=== PATIENT | female | born 1935 | race Caucasian/White ===

== ENCOUNTER 2021-03-06 21:47 | Observation (INO) | payer MEDICARE, OTHER, SELFPAY ==
--- NOTE | 2021-03-06 21:58 | DI.RAD.S_ITS ---
PROCEDURE: XR HIP W PEL IF DONE LT 2V INDICATIONS: fall with pain to left hip TECHNIQUE: AP pelvis with lateral view(s) of the left hip(s). COMPARISON: None. FINDINGS: Bones: No fractures or dislocations. Pelvic ring appears intact. No suspicious bony lesions. Mild bilateral hip osteoarthritis. Soft tissues: The visualized bowel gas pattern is normal. No suspicious soft tissue calcifications. IMPRESSION: No fracture. No osseous lesion. If symptoms and/or clinical suspicion for pathology persists, further assessment with repeat radiographs (7-10 days) or advanced imaging (e.g. CT, MRI or bone scan) should be considered. Dictated by: Tianna Wilson MD, PhD on 03/07/2021 at 8:27 Approved by: Tianna Wilson MD, PhD on 03/07/2021 at 8:28
[2021-03-06 22:03] VITALS: BP 174/79; PULSE 79; RESP 17; TEMP 36.6; O2SAT 99; BMI 25.7
[2021-03-06 22:33] VITALS: PULSE 79; O2SAT 97
--- NOTE | 2021-03-06 22:35 | DI.CT.S_ITS ---
PROCEDURE: CT LE LT W CON INDICATIONS: Left knee pain/injury TECHNIQUE: Noncontrast 1-1.5 mm axial sections acquired from the mid-patella to the proximal tibia, with coronal and sagittal reformats. COMPARISON: [facility] [place], CR, XR KNEE ARTHRITIC SERIES BI, 05/03/2018, 11:16. FINDINGS: Image quality: Excellent. Bones: No acute osseous fracture is seen. However, CT is relatively insensitive for trabecular bone injury or contusion. There is moderate to severe narrowing of the medial and lateral femorotibial compartment with marginal osteophyte formation and chronic remodeling of the lateral tibial plateau. Moderate narrowing of the anterior compartment joint space is seen. A congenitally shallow trochlear groove is seen with lateral patellar tilting and mild lateral patellar subluxation. Enthesophytes are seen at the distal quadriceps tendon insertion. Soft tissues: There is a small joint effusion. A small medial popliteal cyst is present. The articular cartilages, menisci, ligaments, and tendons are not well evaluated with CT. There is mild generalized fatty infiltration of the musculature surrounding the knee. Arterial vascular calcifications are present. IMPRESSION: 1. No acute osseous fracture. If symptoms persist or if there is concern for acute trabecular bone injury or soft tissue injury that would change the clinical management, an MRI may be obtained for further evaluation. 2. 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 3. Small joint effusion. Small medial popliteal cyst. There is no significant discrepancy when compared to the overnight Teleradiology report. Dictated by: Abdulkadir Sweet M.D. on 03/07/2021 at 8:26 Approved by: Abdulkadir Sweet M.D. on 03/07/2021 at 8:31
--- NOTE | 2021-03-06 22:35 | DI.CT.S_ITS ---
PROCEDURE: CT PEL WO CON INDICATIONS: pain/injury TECHNIQUE: Noncontrast 3 mm axial sections acquired through the bony pelvis, with coronal and sagittal reformatting. COMPARISON: [facility], CR, XR HIP W PEL IF DONE LT 2V, 03/06/2021, 22:07. FINDINGS: Image quality: Excellent. Bones: There is a nondisplaced fracture the anterior wall of the acetabulum extending to the iliopectineal line medially. Additional nondisplaced fracture is seen in the medial parasymphyseal portion of the left pubic bone. Focal cortical irregularity is seen at the midshaft of the left inferior pubic ramus, consistent with a nondisplaced fracture. A nondisplaced fracture is seen at the left ischial spine (image 63 of series 2). Additionally, there is a nondisplaced fracture of the superior portion of the left susan sacrum (image 24 series 2). There is a nondisplaced fracture of the left transverse process of the L5 vertebra. Mild to moderate degenerative changes are seen in the hips bilaterally. Degenerative changes also noted in the included lumbar spine. Soft tissues: Soft tissue edema is seen in the subcutaneous tissues lateral to the left greater trochanter. The articular cartilages, ligaments, and tendons are not well evaluated with CT. Atherosclerotic calcifications are seen in the aorta. Multiple diverticula are seen in the colon without signs of acute diverticulitis. IMPRESSION: 1. Nondisplaced anterior wall fracture of the left acetabulum. 2. Nondisplaced left parasymphyseal pubic bone fracture and nondisplaced fracture of the inferior left pubic ramus. 3. Nondisplaced fractures of the superior left hemisacrum and the adjacent left transverse process of the L5 vertebra. 4. Nondisplaced fracture of the left ischial spine. Dictated by: Abdulkadir Sweet M.D. on 03/07/2021 at 8:03 Approved by: Abdulkadir Sweet M.D. on 03/07/2021 at 8:25
--- NOTE | 2021-03-06 22:40 | ED_ITS ---
HPI - Fall General Chief Complaint: Fall Stated Complaint: Possible Left Hip Fracture Time Seen by Provider: 03/06/21 22:29 Source: patient Mode of arrival: Ambulatory History of Present Illness HPI Narrative: [place] Patient [place] the garden and lost her footing and fell down her left hip pelvis area as well as left knee. No previous hip or knee or pelvis injury or surgery or fractures. Pain with attempts to bear weight. Leg is not shortened or rotated. Patient states up-to-date with tetanus shot. Has abrasions to the left elbow. Denies any other injuries. No head or neck or back injury. Or pain. Related Data Home Medications Medication Instructions Recorded Confirmed CHOLECALCIFEROL (VITAMIN D3) 800 unit PO QDAY #0 12/25/10 (Vitamin D3) Fish Oil 1,000 mg PO BID #0 12/25/10 [PROBIOTIC] 2 tab PO HS #0 12/25/10 Lutein (#LUTEIN) 20 mg PO QDAY #0 03/31/12 [LICOPENE] Q DAY #0 04/09/16 [tumeric] #0 09/15/16 aspirin 81 mg chewable tablet 81 mg PO QDAY #0 09/15/16 cyanocobalamin (vitamin B-12) 1,000 mcg PO #0 09/15/16 1,000 mcg tablet,extended release carter (Zingiber officinalis) 550 550 mg PO #0 09/15/16 mg capsule Previous Rx's Medication Instructions Recorded [coenzyme Q10] 200 mg OR QDAY #30 cap 09/15/16 doxycycline hyclate 100 mg capsule 100 mg PO SEE INSTRUCTIONS #42 cap 09/15/16 metronidazole 0.75 % topical cream 1 jonel TOPICAL SEE INSTRUCTIONS #45 09/15/16 (MetroCream) gm levothyroxine 100 mcg tablet 0.1 mg PO Q DAY #90 tab 09/22/16 lisinopril 10 mg tablet 10 mg PO QDAY #90 tab 12/11/16 atorvastatin 40 mg tablet (Lipitor) 40 mg PO HS #90 tab 01/09/17 Allergies Allergy/AdvReac Type Severity Reaction Status Date / Time tetracycline AdvReac Mild NAUSEA Unverified 10/07/17 13:01 Review of Systems Review of Systems Narrative: GENERAL: Denies chills, fatigue, malaise, fever, sweats. HEENT: Denies sinus pain, ear pain, sore throat RESPIRATORY: Denies dyspnea, cough CARDIOVASCULAR: Denies chest pain, palpitations GASTROINTESTINAL: Denies nausea, vomiting, abdominal pain : Denies dysuria, frequency, hematuria MUSCULOSKELETAL: Complainsmuscle or bony pain SKIN: Denies rash, skin lesions NEUROLOGIC: Denies weakness, numbness ROS Unobtainable: All systems reviewed & are unremarkable except as noted in HPI and below Patient History Social History Smoking Status: Never smoker Smoking Status: Never smoker alcohol intake frequency: 0-2 drinks per day Alcohol type: wine Substance Use Type: does not use Exam Narrative Exam Narrative: GENERAL: in no distress, not toxic not dyspneic HEAD: Normocephalic. Nontender scalp and face. EYES: Pupils equal round No scleral icterus. No injection no discharge ENT: Mucous membranes moist. NECK: Trachea midline. No midline tenderness or step-off. CARDIOVASCULAR: Regular rate and rhythm without murmurs RESPIRATORY: Clear to auscultation. Breath sounds equal bilaterally. No wheezes, rales, or rhonchi. GASTROINTESTINAL: Abdomen soft, non-tender EXTREMITIES: No gross deformities. There is tenderness to left hip but no deformity. Left leg is not shortened or rotated. There is abrasions and bruising to the left knee. Limited flexion extension at the hip and knee on the left side due to pain. Strong pedal pulse. Foot is warm soft and pink. Light touch intact to foot and toes. Small abrasion to left elbow but nontender elbow otherwise. BACK: No flank tenderness. NEURO: AOx4. SKIN: Warm and dry PSYCH: Not anxious, is cooperative Initial Vital Signs Initial Vital Signs: Vital Signs Temperature 97.8 F 03/06/21 22:03 Pulse Rate 79 03/06/21 22:03 Respiratory Rate 17 03/06/21 22:03 Blood Pressure 174/79 H 03/06/21 22:03 Pulse Oximetry 99 03/06/21 22:03 Course Course Course Narrative: No new issues during course of stay Decision to Admit Date: 03/07/21 Decision to Admit time: 00:19 Orders Ordered: ED Orders 03/06/21 21:58 XR hip w pel if done LT 2V Stat 03/06/21 22:35 CT LE LT wo con Stat CT pelvis wo con Stat 03/07/21 00:20 COVID19 - ADMIT ([employer] swab/PCR) Stat 03/07/21 02:05 Education, smoking cessation ONGOING 03/07/21 02:12 Consult to Physician Routine 03/07/21 05:00 Basic Metabolic Panel Routine Complete Blood Count AUTO DIFF Routine Magnesium Routine Acetaminophen (Acetaminophen 325 Mg Tablet) 650 mg PO Q6HR PRN PRN Reason: Fever/Mild Pain (1-3) Al Hydrox/Mg Hydrox/Simethicone (Mag Hydrox/Alum/Simeth 30 Ml Udc) 30 ml PO Q6HR PRN PRN Reason: Dyspepsia Heparin Sodium (Porcine) (Heparin 5,000 Unit/Ml Vial) 5,000 unit SUBCUT BID ZANE Lactated Ringer's (Lactated Ringers) 1,000 mls @ 60 mls/hr IV CONT ZANE Magnesium Hydroxide (Magnesium Hydroxide 30 Ml Udc) 30 ml PO DAILY PRN PRN Reason: Constipation Morphine Sulfate (Morphine 2 Mg/Ml Inj) 2 mg IV Q4HR PRN PRN Reason: Pain, Moderate (4-6) Last Admin: 03/07/21 03:22 Dose: 2 mg Documented by: DELONTE Naloxone HCl (Naloxone 0.4 Mg/Ml Vial) 0.2 mg IV Q2MIN PRN PRN Reason: Opiate Reversal Ondansetron HCl (Ondansetron 4 Mg/2 Ml Inj) 4 mg IV Q8HR PRN PRN Reason: Nausea And Vomiting Oxycodone HCl (Oxycodone Ir 5 Mg Tablet) 5 mg PO Q6HR PRN PRN Reason: Pain, Moderate (4-6) Sennosides (Sennosides 8.6 Mg Tablet) 17.2 mg PO BEDTIME [facility] Discontinued Medications Morphine Sulfate (Morphine 4 Mg/Ml Inj) 4 mg IV NOW ONE Stop: 03/06/21 22:36 Last Admin: 03/06/21 22:42 Dose: 4 mg Documented by: XU Ondansetron HCl (Ondansetron 4 Mg/2 Ml Inj) 4 mg IV NOW ONE Stop: 03/06/21 22:36 Last Admin: 03/06/21 22:42 Dose: 4 mg Documented by: XU Reevaluation(s) Reevaluation #1: Reviewed results with patient. Understands and agrees for admit for orthopedic consult as well as physical therapy Time: 00:19 Consultations Consultation #1: Spoke with Orthopedics, Dr. Johnson, reports on CT revealed likely nonsurgical. However available for consult in review CT tomorrow and patient Time: 00:21 Consultation #2: Spoke with Nel, hospitalist, will admit Time: 01:27 Vital Signs Vital signs: Vital Signs - 8 hr 03/06/21 22:03 03/06/21 22:33 03/06/21 23:00 Temperature 97.8 F Pulse Rate 79 79 74 Respiratory Rate 17 Blood Pressure 174/79 H 140/66 Pulse Oximetry 99 97 100 03/06/21 23:01 03/06/21 23:30 03/06/21 23:31 Temperature Pulse Rate 74 73 71 Respiratory Rate Blood Pressure 134/62 141/65 H Pulse Oximetry 100 99 98 03/07/21 00:00 03/07/21 00:30 Temperature Pulse Rate 77 Respiratory Rate Blood Pressure 154/68 H 171/79 H Pulse Oximetry 98 MDM - Fall Differential Diagnosis Differential diagnosis: Likely other (Hip fracture/pelvic fracture) Lab Data Labs: Lab Results 03/07/21 Range/Units 00:20 SARS-CoV-2 (PCR) Negative (Negative) Imaging Data Extremity x-ray #1: Radiologist's Impression: Read by overnight radiologist's x-ray left hip with pelvis no acute fracture or dislocation. Extremity x-ray #2: Radiologist's Impression: CT pelvis without contrast read by overnight radiologist impression small nondisplaced fractures of left superior and inferior pubic rami and in the left anterior acetabulum. No acute hip fracture or dislocation. Extremity x-ray #3: Radiologist's Impression: CT scan left knee without contrast read by overnight radiologist impression small joint effusion with no acute fracture or dislocation. Moderate degenerative changes. MDM Narrative Medical decision making narrative: Appropriate for admission for pain control as well as physical therapy for mobility. Discharge Plan Departure Patient Disposition: Admitted as Observation Clinical Impression: Closed fracture of hip Qualifiers: Encounter type: initial encounter Laterality: unspecified laterality Qualified Code(s): S72.009A - Fracture of unspecified part of neck of unspecified femur, initial encounter for closed fracture Admit Date/Time: 03/07/21 02:10 Admit Provider: Nel Sal
[2021-03-06] MEDS: ONDANSETRON 4 MG/2 ML INJ IV (22:42)
[2021-03-06] MEDS: MORPHINE 4 MG/ML INJ IV (22:42)
[2021-03-06 23:00] VITALS: BP 140/66; PULSE 74; O2SAT 100
[2021-03-06 23:01] VITALS: BP 134/62; PULSE 74; O2SAT 100
[2021-03-06 23:30] VITALS: PULSE 73; O2SAT 99
[2021-03-06 23:31] VITALS: BP 141/65; PULSE 71; O2SAT 98
[2021-03-07] VITALS (13 sets, daily range): BP systolic 129–171; BP diastolic 61–79; PULSE 77–86; RESP 16–18; TEMP 36.3–37.3; O2SAT 91–98; BMI 27.6
[2021-03-07 01:24] LABS: COVID19 - ADMIT (NP swab/PCR) Negative (Negative)
[2021-03-07] MEDS: MORPHINE 2 MG/ML INJ IV ×2 (03:22→08:54)
[2021-03-07] MEDS: LACTATED RINGERS 1,000 ML 60 ML IV (03:33)
--- NOTE | 2021-03-07 04:52 | PC.ADMIT ---
Can'T Receive Mail At [facility] [address] Admission Note: Patient arrived to the unit via stretcher from ED at 0315, patient is A/O and rating pain 10/10 with anticipation of moving to unit bed. Patient was given morphine 2mg IV. Patient was on 3L O2 NC at arrival but was weaned off and is now on RA with O2 Saturation at 98-100%. A mckeon was placed at admission and patient tolerated it well. Home medications were reviewed with the patient with some vitamins not verified d/t patient not being able to recall doses. Patient was oriented to room, fall precautions, and call light. Call light was left within reach and no other requests at this time. The patient,Jia Chakraborty,85 y/o, was given written information regarding hospital policies, unit procedures and contact persons. Patient's smoking status: Never smoker. Vital Signs - 8 hr 03/06/21 22:03 03/06/21 22:33 03/06/21 23:00 Temperature 97.8 F Pulse Rate 79 79 74 Respiratory Rate 17 Blood Pressure 174/79 H 140/66 Pulse Oximetry 99 97 100 03/06/21 23:01 03/06/21 23:30 03/06/21 23:31 Temperature Pulse Rate 74 73 71 Respiratory Rate Blood Pressure 134/62 141/65 H Pulse Oximetry 100 99 98 03/07/21 00:00 03/07/21 00:30 03/07/21 03:15 Temperature 99.2 F Pulse Rate 77 81 Respiratory Rate 18 Blood Pressure 154/68 H 171/79 H 132/61 Pulse Oximetry 98 97 03/07/21 04:18 Temperature Pulse Rate Respiratory Rate Blood Pressure Pulse Oximetry 95
[2021-03-07 05:56] LABS: Add Manual Diff / Slide Review NO; Basophils Absolute Auto 100 /uL (0-100); Basophils Percent Auto 0.6 % (0-2); Eosinophils Absolute Auto 200 /uL (0-450); Eosinophils Percent Auto 1.3 % (2-4); Hematocrit 44.3 % (36-46); Hemoglobin 14.4 g/dL (12.0-16.0); Lymphocytes Absolute Auto 1300 /uL (1100-4500); Mean Corpuscular HGB Conc 32.5 % (30-36); Mean Corpuscular Hemoglobin 32.2 PG (26-34); Monocytes Absolute Auto 1000 /uL (0-900); Monocytes Percent Auto 7.9 % (3-14); Neutrophils Absolute Auto 9500 /uL (1500-7000); Neutrophils Percent Auto 79.2 % (50-75); Platelet Count 226 X10^3/uL (150-400); Red Blood Cell Count 4.47 X10^6/uL (4.0-5.2); Red Cell Distribution Width 13.5 % (11.6-14.8); White Blood Cell Count 12.1 X10^3/uL (4.5-11.0)
[2021-03-07 06:08] LABS: BUN Creatinine Ratio 25.6 (6-22); Blood Urea Nitrogen 21 mg/dL (7-17); Carbon Dioxide 28 mmol/L (22-32); Chloride 107 mmol/L (98-107); Estimated Glomerular Filt Rate > 60.0 mL/min (>60); Glucose 110 mg/dL (80-110); HEMOLYSIS < 15 (0-50); Magnesium 2.2 mg/dL (1.6-2.3); Potassium 3.8 mmol/L (3.4-5.1); Sodium 138 mmol/L (137-145)
--- NOTE | 2021-03-07 06:41 | P.HP_ITS ---
History of Present Illness History of Present Illness Date Patient Seen: 03/07/21 Time Patient Seen: 02:14 Chief complaint: Possible Left Hip Fracture Narrative: Patient is an 85-year-old female Jia Chakraborty with a history hypertension, polymyalgia rheumatica-chronic prednisone , and hypothyroidism [place] Patient [place] the garden and lost her footing and fell down her left hip pelvis area as well as left knee.? No previous hip or knee or pelvis injury or surgery or fractures.? Pain with attempts to bear weight, or movement.? Leg is not shortened or rotated.? Patient states up-to-date with tetanus shot.? Has abrasions to the left elbow.? Denies any other injuries.? No head or neck or back injury. Keith aleman denies chest pain, shortness of breath, headache, changes in vision, abdominal pain, nausea, vomiting, neck pain, numbness, tingling, weakness, other than pain with pelvic movement. Patient is resting comfortably in bed and states that she is in no pain if she lays perfectly still in the bed. Patient is unable to get up and ambulate or move at all. Patient's vitals in the ED demonstrated some mild hypertension with a BP 171/79, HR 77, R 17, O2 saturation 98% on room air. No labs were drawn in the ED. patient's lower extremity CT demonstrated left knee small joint effusion without fracture or dislocation, pelvis CT demonstrated small displaced fractures of the left superior and inferior pubic ramus and in left anterior acetabulum. All orthopedic Dr. Johnson reviewed imaging and will consult tomorrow but believes it will be managed with conservative therapy and will not require surgical intervention. Patient admitted for pelvic fractures secondary to mechanical ground level fall. Patient History Medical History (Updated 03/07/21 @ 06:50 by KING Larry) Acquired hypothyroidism Essential hypertension Surgical History (Updated 03/07/21 @ 06:50 by KING Larry) History of tonsillectomy Family & Social History Family History Father Emphysema lung Sister No problems noted. Social History: household members none Prior Living Arrangements House Safety & Behavioral: Feels Safe in Current Yes Environment Been Physically Hurt or No Threatened By a Person Suicidal Ideation Description None Suicide Plan Description No Plan Tobacco & Substance use: Smoking Status Never smoker alcohol intake frequency 0-2 drinks per day Substance Use Type does not use Meds Home Medications and Allergies Home Medications Medication Instructions Recorded Confirmed Type CHOLECALCIFEROL (VITAMIN D3) 800 unit PO QDAY #0 12/25/10 03/07/21 History (Vitamin D3) Fish Oil 1,000 mg PO BID #0 12/25/10 History Lutein (#LUTEIN) 20 mg PO QDAY #0 03/31/12 History [coenzyme Q10] 200 mg OR QDAY #30 cap 09/15/16 03/07/21 Rx aspirin 81 mg chewable tablet 81 mg PO QDAY #0 09/15/16 03/07/21 History cyanocobalamin (vitamin B-12) 1,000 mcg PO #0 09/15/16 History 1,000 mcg tablet,extended release doxycycline hyclate 100 mg capsule 100 mg PO SEE INSTRUCTIONS #42 cap 09/15/16 Rx carter (Zingiber officinalis) 550 550 mg PO #0 09/15/16 History mg capsule metronidazole 0.75 % topical cream 1 jonel TOPICAL SEE INSTRUCTIONS #45 09/15/16 Rx (MetroCream) gm levothyroxine 100 mcg tablet 0.1 mg PO Q DAY #90 tab 09/22/16 03/07/21 Rx lisinopril 10 mg tablet 10 mg PO QDAY #90 tab 12/11/16 03/07/21 Rx atorvastatin 40 mg tablet (Lipitor) 40 mg PO HS #90 tab 01/09/17 03/07/21 Rx amitriptyline 25 mg tablet 25 mg PO BEDTIME 03/07/21 03/07/21 History prednisone 1 mg tablet 3 mg PO DAILY 03/07/21 03/07/21 History prednisone 5 mg tablet 5 mg PO DAILY 03/07/21 03/07/21 History Allergies Allergy/AdvReac Type Severity Reaction Status Date / Time tetracycline AdvReac Mild NAUSEA Unverified 10/07/17 13:01 Review of Systems Review of Systems Narrative: All 12 point systems reviewed with the patient and are negative except otherwise documented. Exam Vital Signs (past 8 hours): - 03/06/21 23:00 03/06/21 23:01 03/06/21 23:30 Temperature Pulse Rate 74 74 73 Respiratory Rate Blood Pressure 140/66 134/62 Pulse Oximetry 100 100 99 03/06/21 23:31 03/07/21 00:00 03/07/21 00:30 Temperature Pulse Rate 71 77 Respiratory Rate Blood Pressure 141/65 H 154/68 H 171/79 H Pulse Oximetry 98 98 03/07/21 03:15 03/07/21 04:18 Temperature 99.2 F Pulse Rate 81 Respiratory Rate 18 Blood Pressure 132/61 Pulse Oximetry 97 95 Oxygen Delivery Method Room Air Oxygen Flow Rate 3 Narrative Exam Narrative: General: Patient is a well-developed, well-nourished in no distress at this time. HEENT: Normocephalic, atraumatic, extraocular muscles intact, oral pharynx is clear and mucous membranes are moist. Neck is supple and symmetric, trachea is midline, no adenopathy, no thyroid enlargement, nontender, no masses palpated. Negative for JVD Chest: Normal AP diameter and contour without kyphoscoliosis, no nasal flaring, retractions, or tachypneic labored Lungs: Auscultation of all lung hernandez are clear without adventitious sounds, wheezes, rhonchi, or rales. Cardio: S1 & S2 with regular rate and rhythm without murmur, rubs, or gallops, no carotid bruit, no cardiac pulsations present. Abdomen: Soft nontender, negative for organomegaly, or masses. Bowel sounds are present in all 4 quadrants without guarding or rebound, no CVA tenderness. Musculoskeletal: Muscle strength and tone appear equal within normal limits, no deformity, effusions, cyanosis, clubbing or edema present. radial and pedal pulses are normal. Skin: Warm dry and intact without rashes, ulcerations or petechiae. Neuro: Alert and orientated x3, sensation to touch intact, no gross deficits noted of cranial nerves. Psych: Patient has a well-kept appearance, appropriate affect, mental status attitude thought context and judgment are appropriate for age. Objective Labs Result Diagrams: 03/07/21 05:46 03/07/21 05:46 Labs: Laboratory Results - last 24 hr 03/07/21 03/07/21 03/07/21 00:20 05:46 05:46 WBC 12.1 H RBC 4.47 Hgb 14.4 Hct 44.3 MCV 99.0 MCH 32.2 MCHC 32.5 RDW 13.5 Plt Count 226 Neut % (Auto) 79.2 H Lymph % (Auto) 11.0 L [place] % (Auto) 7.9 Eos % (Auto) 1.3 L Baso % (Auto) 0.6 Neut # (Auto) 9500 H Lymph # (Auto) 1300 [place] # (Auto) 1000 H Eos # (Auto) 200 Baso # (Auto) 100 Sodium 138 Potassium 3.8 Chloride 107 Carbon Dioxide 28 BUN 21 H Creatinine 0.82 Estimated GFR > 60.0 BUN/Creatinine Ratio 25.6 H Glucose 110 Calcium 9.0 Magnesium 2.2 SARS-CoV-2 (PCR) Negative Assessment & Plan Assessment & Plan narrative: Jia Chakraborty is an 85-year-old female with a history of essential hypertension, and hyperlipidemia that is admitted today for a mechanical ground level fall resulting in left pubic fractures. 1. Mechanical ground level fall, resulting in small nondisplaced fractures of the left superior and inferior pubic rami and in the left anterior acetabulum, acute, present on admission -Lozano placed, V/S Q4, I&O Q shift, daily weights, diet: Heart healthy, activity: Bedrest only until evaluated by orthopedics. -ortho consult Dr. Johnson -recommend PT and OT evaluation following ortho consult per their recommendation -pain management, and facilitation for outpatient management and recovery. -baseline labs ordered for the a.m. 2. Essential hypertension, exacerbation, acute on chronic, present on admission -initial BP 171/79 -continue patient's lisinopril 3. Acquired hypothyroidism, chronic, present on admission -continue patient's levothyroxine 4. Hyperlipidemia, chronic, present on admission -continue patient's Lipitor Code status: Full code Surrogate decision maker: Daughter Hugo JENKINS PCR: Negative DVT/VTE prophylaxis: Heparin 5000 units and SCDs Disposition: Estimated length of stay greater than 2 midnights, due to patient's immobility I have utilized all available immediate resources to obtain, update, or review the patient's current medications. I confirmed that the patient's advanced care plan is present, Code status is documented and/or surrogate decision maker is listed in the patient's medical record. Time Spent With Patient Critical Care time: I spent a total of [] minutes of critical care time on this patient's care today; this time is exclusive of procedural time. Scores GCS [place] coma scale eye opening: Spontaneous [place] coma scale verbal response: Orientated [place] coma scale motor response: Obey commands [place] coma scale total score: 15
[2021-03-07 08:43] LABS: Cortisol AM (Before 10AM) 9.95 ug/dL (4.46-22.7)
[2021-03-07] MEDS: HEPARIN 5,000 UNIT/ML VIAL 5000 UNIT SUBCUT ×2 (08:55→21:00)
--- NOTE | 2021-03-07 08:59 | PC.NURSE ---
Addendum entered by Charmaine Cormier R.N. 03/07/21 14:02: Patient HOB elevated, patient reports decrease in pain since taking PO Oxy, patient denies needs at this time. Tolerating diet and fluids, patient reports her appetite is returning. Patient makes subtle adjustments in bed but refuses large adjustments to position. Call light in reach, SCD's on. Patient denies further needs at this time. Addendum entered by Charmaine Cormier R.N. 03/07/21 10:57: Patient and daughter confirm that patient has NKDA. Original Note: Patient resting in bed, a/o x 3, morphine IV administered for pain. patient wincing and rigid. Pulses faint in LLE, doppler used. SCD's on. Heparin administered. LR infusing at 60cc/hr. Lozano patent, draining. Patient denies appetite this AM. Call light in reach.
[2021-03-07] MEDS: OXYCODONE IR 5 MG TABLET PO ×2 (10:17→17:10)
--- NOTE | 2021-03-07 11:51 | P.CONS_ITS ---
History of Present Illness Consult details Date Patient Seen: 03/07/21 Time Patient Seen: 11:30 Chief complaint: Possible Left Hip Fracture Reason for consult: Left hip pain Requesting provider: Nel Sal Narrative: 85-year-old female who was admitted last night due to difficulty with ambulation. Patient tripped and fell while working in her garden landing on her left side. Patient states she had quite a bit of pain and was unable to ambulate. States that when she got into the house and was sitting in a chair she had absolutely no pain but any time she tried to get up she had quite a bit of pain to the left hip. Due to the difficulty with ambulation patient was transferred to the emergency room. X-rays were negative but a CT scan showed a nondisplaced fracture involving the superior and inferior rami as well as the acetabulum. Meds Home Medications and Allergies Home Medications Medication Instructions Recorded Confirmed Type CHOLECALCIFEROL (VITAMIN D3) 800 unit PO QDAY #0 12/25/10 03/07/21 History (Vitamin D3) Fish Oil 1,000 mg PO BID #0 12/25/10 03/07/21 History Lutein (#LUTEIN) 20 mg PO QDAY #0 03/31/12 03/07/21 History [coenzyme Q10] 200 mg OR QDAY #30 cap 09/15/16 03/07/21 Rx aspirin 81 mg chewable tablet 81 mg PO QDAY #0 09/15/16 03/07/21 History metronidazole 0.75 % topical cream 1 jonel TOPICAL SEE INSTRUCTIONS #45 09/15/16 03/07/21 Rx (MetroCream) gm levothyroxine 100 mcg tablet 0.1 mg PO Q DAY #90 tab 09/22/16 03/07/21 Rx lisinopril 10 mg tablet 10 mg PO QDAY #90 tab 12/11/16 03/07/21 Rx atorvastatin 40 mg tablet (Lipitor) 40 mg PO HS #90 tab 01/09/17 03/07/21 Rx amitriptyline 25 mg tablet 25 mg PO BEDTIME 03/07/21 03/07/21 History prednisone 1 mg tablet 3 mg PO DAILY 03/07/21 03/07/21 History prednisone 5 mg tablet 5 mg PO DAILY 03/07/21 03/07/21 History Allergies Allergy/AdvReac Type Severity Reaction Status Date / Time No Known Drug Allergies Allergy Verified 03/07/21 10:57 Exam Vital Signs (past 8 hours): - 03/07/21 04:18 03/07/21 07:36 03/07/21 08:00 Temperature 98.1 F Pulse Rate 86 Respiratory Rate 18 Blood Pressure 133/68 Pulse Oximetry 95 96 97 03/07/21 10:56 Temperature Pulse Rate Respiratory Rate Blood Pressure Pulse Oximetry 97 Oxygen Delivery Method Room Air Oxygen Flow Rate 0 Narrative Exam Narrative: On physical exam patient is alert and oriented x3. No apparent distress. Patient denies any pain while lying in bed. Patient has some abrasions to the left elbow but no pain or discomfort with range of motion of the left upper extremity. No injuries involving the right side of the body. Some bruising around the left knee but has good range of motion of the left knee without any instability. 2. Pain with range of motion of the left hip. Patient is able to flex the to a 90 degree position with very little discomfort. Does have discomfort with axial loading of the hip joint. No sign of any foot or ankle swelling or instability. Positive dorsiflexion and plantar flexion. Plus two palpable pedal pulses. Objective Labs Result Diagrams: 03/07/21 05:46 03/07/21 05:46 Labs: Laboratory Results - last 24 hr 03/07/21 03/07/21 03/07/21 00:20 05:46 05:46 WBC 12.1 H RBC 4.47 Hgb 14.4 Hct 44.3 MCV 99.0 MCH 32.2 MCHC 32.5 RDW 13.5 Plt Count 226 Neut % (Auto) 79.2 H Lymph % (Auto) 11.0 L [place] % (Auto) 7.9 Eos % (Auto) 1.3 L Baso % (Auto) 0.6 Neut # (Auto) 9500 H Lymph # (Auto) 1300 [place] # (Auto) 1000 H Eos # (Auto) 200 Baso # (Auto) 100 Sodium 138 Potassium 3.8 Chloride 107 Carbon Dioxide 28 BUN 21 H Creatinine 0.82 Estimated GFR > 60.0 BUN/Creatinine Ratio 25.6 H Glucose 110 Calcium 9.0 Magnesium 2.2 Cortisol AM Sample SARS-CoV-2 (PCR) Negative 03/07/21 05:46 WBC RBC Hgb Hct MCV MCH MCHC RDW Plt Count Neut % (Auto) Lymph % (Auto) [place] % (Auto) Eos % (Auto) Baso % (Auto) Neut # (Auto) Lymph # (Auto) [place] # (Auto) Eos # (Auto) Baso # (Auto) Sodium Potassium Chloride Carbon Dioxide BUN Creatinine Estimated GFR BUN/Creatinine Ratio Glucose Calcium Magnesium Cortisol AM Sample 9.95 SARS-CoV-2 (PCR) [facility] Medical History Acquired hypothyroidism Essential hypertension Surgical History History of tonsillectomy Family History Father Emphysema lung Sister No problems noted. Social History household members: none Tobacco & Substance Use Smoking Status: Never smoker Assessment & Plan Assessment & Plan narrative: Patient with nondisplaced fractures involving the pelvis in the acetabulum on the left side. Due the fact that these are nondisplaced this is something that can be treated non operatively. Will require limited weight-bearing to the left side. Would recommend physical therapy to work on gait and ambulation with partial weight-bearing to the left side. Time Spent With Patient Critical Care time: I spent a total of 25 minutes of critical care time on this patient's care today; this time is exclusive of procedural time.
--- NOTE | 2021-03-07 13:50 | PT.IIE ---
Medical History (Last Reviewed 03/07/21 @ 11:52 by Jake Johnson MD) Acquired hypothyroidism Essential hypertension Physical Therapy Inpatient Evaluation/Re-Eval M1 PT/OT-IP Prior Functional Status Start: 03/07/21 17:01 Freq: NEEDED Status: Active Protocol: Document 03/07/21 13:50 AB (Rec: 03/07/21 17:21 AB [email or web address]) Medical Review Prior Functional Status Medical History Reviewed Yes Communication able to make needs known Mobility and Gait pt stated that she is independent with all mobilities and ambulation using SPC for the past 4 weeks due to R sided sciatica Social History Household Members none Living Arrangements House Number of Floors (Floors) Two Floors Number of Stairs To Enter/Railing? pt stays on main level of the house 1 step to enter Home Environment High Toilet,Walk in Shower Home Equipment Straight Cane,Hand Held Shower ,Grab Bars Near Toilet Additional Social History Comment stated that her daughter and son-in-law will be able to assist her M2 PT-IP Current Condition Start: 03/07/21 17:01 Freq: NEEDED Status: Active Protocol: Document 03/07/21 13:50 AB (Rec: 03/07/21 17:21 AB [email or web address]) Physical Therapy Current Condition Current Condition Evaluation Date 03/07/21 Treatment Diagnosis GLF; L sup/inf pubic rami fx; difficulty in walking Onset Date 03/07/21 Precautions Other Precautions falls Weight Bearing Status Weight Bearing Status Touch Down Weight Bearing Allowed Weight Bearing Amount (enter % TTWB LLE or #) (%) Per Dr. Johnson's note: PWB but on actual order TTWB M3 PT-IP Subjective Start: 03/07/21 17:01 Freq: NEEDED Status: Active Protocol: Document 03/07/21 13:50 AB (Rec: 03/07/21 17:21 AB [email or web address]) Subjective Physical Therapy Visit Type Type Initial Evaluation Visit Start Time 13:50 Visit Stop Time 14:35 Total Visit Minutes 45 Number of LIVEST[employer] BRANDS INSPECTOR Visits 0 Physical Therapy Visit Comments Patient Comments agreeable to do PT Therapy Pain Assessment Pain When Pain Assessed At Rest Pain Present Pain Present Pain Reported Location left hip Intensity 4 Scale Used increased to 10/10 with mobility Pain Behaviors Guarding,Holding Area,Moaning, Wincing Pain Management Techniques Distraction,Modification of Treatment,Re-positioning, Timing of Activity with Medications M4 PT-IP Mobility and Gait Start: 03/07/21 17:01 Freq: NEEDED Status: Active Protocol: Document 03/07/21 13:50 AB (Rec: 03/07/21 17:21 AB [email or web address]) PT-Bed Mobility Assessment Supine to Sit Supine to Sit Maximum Assistance,2 Person Assistance,Head of Bed Elevated,Bedrails Scooting Scooting to Edge of Bed Maximum Assistance PT-Transfer Assessment Sit to and From Stand Sit to and from Stand Maximum Assistance,2 Person Assistance,Use of Upper Extremities Equipment Transfer Assistive Device Gait Belt,Front Wheeled Walker Orthotic/Prosthetic Devices or Brace: No Transfers Transfer Destination Chair Transfer Technique Stand Pivot Transfer Ability Level of Assist Maximum Assistance,2 Person Assistance,Use of Upper Extremities Comments Mobility Comments pt supine in bed and agreed to do PT. completed supine to sit x 2 attempts. c/o increase L hip pain. attempted log roll due to pt's sciatica but pt unable to completed. elevated HOB up and pt used bed rail but still requires max A x 2 to sit on EOB. educated pt on weight bearing restriction and understood. completed sit to stand max A x 2 and max cues using FWW for support max A but unable to pivot and instructe to sit back down. pt with difficulty maintain TTWB on LLE despite max A x 2 provided. pt educated on techniques. attempted sit to stand again max A x 2 and max cues and completed pivot transfer using FWW max A x 2 and max cues. unable to ambulate at this time. agreed to sit up on chair. positioned on chair. call light and table placed within reach. pt's daughter came in during transfers. informed pt and daughter regarding pt's mobility assistance needs: assist x 2 max A, pt will need a w/c and FWW for mobility. informed them that PT is recommending SNF at this time but refused. daughter stated that it is not the money. informed daughter that if they decide to bring pt home, then pt will need the above recommendations. Informed case assistant Marleen. Gait Assessment Comments Gait Comments unable at this time PT-Balance Assessment Sitting Balance and Reactions Static Sitting Balance Ability Fair Dynamic Sitting Balance Ability Fair Standing Balance and Reactions Static Standing Balance Ability Poor Dynamic Standing Balance Ability Poor Device Used FWW M5 PT-IP Objective Assessments Start: 03/07/21 17:01 Freq: NEEDED Status: Active Protocol: Document 03/07/21 13:50 AB (Rec: 03/07/21 17: AB [email or web address]) Orientation Orientation/Cognition Level of Alertness Alert Orientation Name,Place,Situation Language Function Ability Hard of Hearing Safety Awareness Decreased Safety Awareness Gross Range of Motion Lower Extremity ROM Assessment Left Impaired Impairments increase guarding and c/o pain with PROM Strength Lower Extremity Strength Hip 3-/5 Knee 3+/5 Comments Strength Comments pain affecting LLE strength Muscle Tone Muscle Tone WNL Yes M6 PT-IP Treatment Start: 03/07/21 17:01 Freq: NEEDED Status: Active Protocol: Document 03/07/21 13:50 AB (Rec: 03/07/21 17: AB [email or web address]) Physical Therapy Treatment Education Education Provided Weight Bearing Status,Safety M7 PT-IP Assessment and Plan Start: 03/07/21 17:01 Freq: NEEDED Status: Active Protocol: Document 03/07/21 13:50 AB (Rec: 03/07/21 17:21 AB [email or web address]) PT Summary Assessment and Plan Potential Rehabilitation Potential Fair Status of Condition at Evaluation Evolving Summary Impairments Pain,ROM,Strength,Balance, Coordination,Sensation,Bed Mobility,Transfers,Gait, Activity Tolerance Assessment Summary pt requiring max A x 2 with mobility at this time and unable to ambulate. recommending mechanical lift transfer with nurses at this time. Pt also unable to maintain TTWB on LLE during standing and transfer and requires max A x 2 and max cues. pt will require SNF rehab at this time. will continue to assess progress. Goals Bed Mobility Goal Contact Guard Assistance Transfer Goal Contact Guard Assistance,Front Wheeled Walker Gait Goal Contact Guard Assistance,Front Wheel Walker Gait Distance 50 Other Goals up/down 1 step using FWW CGA Days to Meet Goals 10 Frequency of Treatment Frequency Of Treatment Once a Day Treatment Plan Physical Therapy Treatment Plan Bed Mobility Training,Transfer Training,Gait Training, Therapeutic Exercise,Balance Retraining,Discharge Planning, Hot or Cold Pack,Neuromuscular Re-ed,Coordination Retraining Precautions Other Precautions falls TTWB LLE Per Dr. Johnson's note: PWB but on actual order TTWB LLE Recommendations To Nursing Amount of Assist Needed Mechanical Lift Discharge Recommendations PT Discharge Recommendations SNF Rehab Transportation Needs at Discharge Wheelchair/Cabulance
--- NOTE | 2021-03-07 15:28 | CM.DPNOTE ---
Faxed SNF referral packet to [facility], [facility] [place]; emailed packet to [facility]; [facility]; Issa [facility] at Marleen's request. Lakisha Talavera CM Asst.
--- NOTE | 2021-03-07 16:21 | CM.DPNOTE ---
DCP Note According to PT Clara, patient will require SNF upon DC, not safe to return home as of today, requiring Max assist x2. Met w/patient and her dtr Belle, introduced role and discussed DCP options. Patient tearful and does not want to DC to SNF, dtr states patient is fearful of getting stuck there Reviewed [facility] choice list for SNF options, patient and dtr ask for all to be faxed to determine bed availability. Dtr says location does not necessarily matter, as much as a strong therapy team at SNF does. Patient understands returning home is not feasible at this time. Then discussed observation status, discussed [facility] SNF benefit, and explained patient will likely be required to pay privately for SNF, one month deposit down required. Dtr states patient able to afford cost. [facility], has faxed SNF options per request from family. Following closely and will continue coordination efforts. WOLF RN will send to EHR for review, currently observation. RENAY
[2021-03-07] MEDS: lisinopriL 10 MG TABLET PO (17:10)
[2021-03-07] MEDS: FISH OIL 1,000 MG CAPSULE 1000 MG PO (21:00)
[2021-03-07] MEDS: AMITRIPTYLINE 25 MG TABLET PO (21:00)
[2021-03-07] MEDS: SENNOSIDES 8.6 MG TABLET 17.2 MG PO (21:00)
[2021-03-07] MEDS: ATORVASTATIN 20 MG TABLET 40 MG PO (21:00)
[2021-03-08] VITALS (11 sets, daily range): BP systolic 122–158; BP diastolic 65–97; PULSE 74–93; RESP 16–18; TEMP 35.7–36.6; O2SAT 93–96
[2021-03-08] MEDS: OXYCODONE IR 5 MG TABLET 10 MG PO ×2 (04:34→08:28)
[2021-03-08] MEDS: LEVOTHYROXINE 100 MCG TABLET PO (05:36)
[2021-03-08] MEDS: LACTATED RINGERS 1,000 ML 60 ML IV (08:22)
[2021-03-08] MEDS: ASPIRIN EC 81 MG TABLET PO (08:26)
[2021-03-08] MEDS: CHOLECALCIFEROL (VITAMIN D3) 400 UNIT TABLET 800 UNIT PO (08:26)
[2021-03-08] MEDS: HEPARIN 5,000 UNIT/ML VIAL 5000 UNIT SUBCUT ×2 (08:27→20:56)
[2021-03-08] MEDS: lisinopriL 10 MG TABLET PO (08:27)
[2021-03-08] MEDS: predniSONE 1 MG TABLET 8 MG PO (08:28)
[2021-03-08] MEDS: FISH OIL 1,000 MG CAPSULE 1000 MG PO (08:28)
[2021-03-08] MEDS: MORPHINE 2 MG/ML INJ IV (08:41)
--- NOTE | 2021-03-08 09:02 | CM.DPNOTE ---
Faxed surgery consult note, PT note & vaccine card to [facility] and received conf. Lakisha Talavera CM Asst.
--- NOTE | 2021-03-08 11:41 | PT.IPTN ---
Physical Therapy Treatment Note M2 PT-IP Current Condition Start: 03/07/21 17:01 Freq: NEEDED Status: Active Protocol: Document 03/07/21 13:50 AB (Rec: 03/07/21 17:21 AB [email or web address]) Physical Therapy Current Condition Current Condition Evaluation Date 03/07/21 Treatment Diagnosis GLF; L sup/inf pubic rami fx; difficulty in walking Onset Date 03/07/21 Precautions Other Precautions falls Weight Bearing Status Weight Bearing Status Touch Down Weight Bearing Allowed Weight Bearing Amount (enter % TTWB LLE or #) (%) Per Dr. Johnson's note: PWB but on actual order TTWB M3 PT-IP Subjective Start: 03/07/21 17:01 Freq: NEEDED Status: Active Protocol: Document 03/08/21 11:12 CLB (Rec: 03/08/21 12:35 CLB [id number]) Subjective Physical Therapy Visit Type Type Treatment Note Visit Start Time 11:12 Visit Stop Time 11:41 Total Visit Minutes 29 Notes Co-treat with OT Number of TREND INVESTIGATOR Visits 1 Physical Therapy Visit Comments Patient Comments Pt hesitant agreeable to do PT Therapy Pain Assessment Pain When Pain Assessed At Rest Pain Present Pain Present Pain Reported Location left hip Intensity 2 Scale Used pt states unbearable with movement. Pain Behaviors Guarding,Holding Area,Moaning, Wincing Pain Management Techniques Distraction,Modification of Treatment,Re-positioning, Timing of Activity with Medications M4 PT-IP Mobility and Gait Start: 03/07/21 17:01 Freq: NEEDED Status: Active Protocol: Document 03/08/21 11:12 CLB (Rec: 03/08/21 12:35 CLB [id number]) PT-Bed Mobility Assessment Supine to Sit Supine to Sit Maximum Assistance,2 Person Assistance,Head of Bed Elevated,Bedrails Scooting Scooting to Edge of Bed Maximum Assistance PT-Transfer Assessment Sit to and From Stand Sit to and from Stand Maximum Assistance,2 Person Assistance,Use of Upper Extremities Equipment Transfer Assistive Device Gait Belt,Front Wheeled Walker Orthotic/Prosthetic Devices or Brace: No Transfers Transfer Destination Chair Transfer Technique slideboard to right Transfer Ability Level of Assist Maximum Assistance,2 Person Assistance,Use of Upper Extremities Comments Mobility Comments Pt sleeping when entering room , SpO2 on 2L 93%, pt woke easily to voice. Pt SpO2 after a few minutes of being awake 97% on 2L. Pt requiring Max A x2 to get to EOB then Max A x2 for standing attempt but pt unable to come to full stand. Pt required Max A x2 to right with slideboard to chair, pt able to push with RLE to assist with sliding. Pt required Max A x2 to scoot back in chair. Pt left in care of OT. Gait Assessment Comments Gait Comments unable at this time PT-Balance Assessment Sitting Balance and Reactions Static Sitting Balance Ability Fair Dynamic Sitting Balance Ability Fair Standing Balance and Reactions Static Standing Balance Ability Poor Dynamic Standing Balance Ability Poor Device Used FWW M5 PT-IP Objective Assessments Start: 03/07/21 17:01 Freq: NEEDED Status: Active Protocol: Document 03/07/21 13:50 AB (Rec: 03/07/21 17:21 AB [email or web address]) Orientation Orientation/Cognition Level of Alertness Alert Orientation Name,Place,Situation Language Function Ability Hard of Hearing Safety Awareness Decreased Safety Awareness Gross Range of Motion Lower Extremity ROM Assessment Left Impaired Impairments increase guarding and c/o pain with PROM Strength Lower Extremity Strength Hip 3-/5 Knee 3+/5 Comments Strength Comments pain affecting LLE strength Muscle Tone Muscle Tone WNL Yes M6 PT-IP Treatment Start: 03/07/21 17:01 Freq: NEEDED Status: Active Protocol: Document 03/07/21 13:50 AB (Rec: 03/07/21 17:21 AB [email or web address]) Physical Therapy Treatment Education Education Provided Weight Bearing Status,Safety M7 PT-IP Assessment and Plan Start: 03/07/21 17:01 Freq: NEEDED Status: Active Protocol: Document 03/08/21 11:12 CLB (Rec: 03/08/21 12:35 CLB [id number]) PT Summary Assessment and Plan Potential Rehabilitation Potential Fair Status of Condition at Evaluation Evolving Summary Impairments Pain,ROM,Strength,Balance, Coordination,Sensation,Bed Mobility,Transfers,Gait, Activity Tolerance Progress Towards Goals Slow Progress due to Pain,Slow Progress due to Activity Tolerance Assessment Summary Pt continues to require Max A x2 for all mobility and was unable to come to full stand. Pt requiring Max A x2 for slideboard transfer. Pt will require SNF rehab to increase strength for functional mobility. Goals Bed Mobility Goal Contact Guard Assistance Transfer Goal Contact Guard Assistance,Front Wheeled Walker Gait Goal Contact Guard Assistance,Front Wheel Walker Gait Distance 50 Other Goals up/down 1 step using FWW CGA Days to Meet Goals 10 Frequency of Treatment Frequency Of Treatment Once a Day Treatment Plan Physical Therapy Treatment Plan Bed Mobility Training,Transfer Training,Gait Training, Therapeutic Exercise,Balance Retraining,Discharge Planning, Hot or Cold Pack,Neuromuscular Re-ed,Coordination Retraining Other Recommendations and Next Treatment bed mobility and transfer with Focus slideboard. Precautions Other Precautions falls TTWB LLE Per Dr. Johnson's note: PWB but on actual order TTWB LLE Recommendations To Nursing Amount of Assist Needed Mechanical Lift Discharge Recommendations PT Discharge Recommendations SNF Rehab Transportation Needs at Discharge Wheelchair/Cabulance
--- NOTE | 2021-03-08 12:00 | OT.IP.EVAL ---
Past Medical History (Last Reviewed 03/07/21 @ 11:52 by Jake Johnson MD) Acquired hypothyroidism Essential hypertension History of tonsillectomy Surgical History (Last Reviewed 03/07/21 @ 11:52 by Jake Johnson MD) History of tonsillectomy Occupational Therapy Inpatient Evaluation/Re-Eval M1 PT/OT-IP Prior Functional Status Start: 03/07/21 17:01 Freq: NEEDED Status: Active Protocol: Document 03/08/21 11:12 [facility] (Rec: 03/08/21 12:26 [facility] [id number]) Medical Review Prior Functional Status Medical History Reviewed Yes Communication able to make needs known Mobility and Gait pt stated that she is independent with all mobilities and ambulation using SPC for the past 4 weeks due to R sided sciatica Activities of Daily Living and IADL's Pt states completely independent with all ADL's, IADl's, drives, and 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 Social History Household Members none Living Arrangements House Number of Floors (Floors) Two Floors Number of Stairs To Enter/Railing? pt stays on main level of the house 1 step to enter Home Environment High Toilet,Walk in Shower Home Equipment Straight Cane,Hand Held Shower ,Grab Bars Near Toilet Additional Social History Comment stated that her daughter and son-in-law will be able to assist her M2 OT-IP Current Condition Start: 03/08/21 12:07 Freq: Status: Active Protocol: Document 03/08/21 11:12 [facility] (Rec: 03/08/21 12:26 [facility] [id number]) Occupational Therapy Current Condition Current Condition Evaluation Date 03/08/21 Treatment Diagnosis GLF, left supine, public rami fx, decreased mobility Diagnosis Onset Date 03/07/21 Weight Bearing Status Weight Bearing Status Touch Down Weight Bearing M3 OT- IP Subjective and Pain Start: 03/08/21 12:07 Freq: Status: Active Protocol: Document 03/08/21 11:12 [facility] (Rec: 03/08/21 12:26 [facility] [id number]) OT- Subjective Occupational Therapy Visit Type Type Initial Evaluation Visit Start Time 11:12 Visit Stop Time 12:00 Total Visit Minutes 48 Occupational Therapy Visit Comments Patient Comments Pt agreed to try to get up. THERAPY DIRECTOR also present as pt needing extensive and skilled assist for mobility needs. Pt's daughter present at the end of the session. Patient/Caregiver Goals To go home, but pt realizes that she is unable to go home at this time. OT Pain Assessment Pain When Pain Assessed At Rest Pain Present Pain Present Pain Reported Location left hip Intensity 2 M4 OT- IP ADL's Start: 03/08/21 12:07 Freq: Status: Active Protocol: Document 03/08/21 11:12 [facility] (Rec: 03/08/21 12:26 [facility] [id number]) OT ADL-Grooming General Evaluation Grooming Ability Minimal Assistance Areas Needing Assistance Combing/Brushing Hair Comments OT Grooming Comments Pt wanting her daughter to fix her hair. OT ADL-Oral Care General Eval Oral Care Ability Independent OT ADL-Dressing General Eval Lower Body Dressing Ability Maximum Assistance OT ADL-Toileting General Evaluation Toileting Ability Total Assistance Comments OT Toileting Comments Lozano in place. OT ADL-Bathing Comments OT Bathing Comments Sponge bath more appropriate at this time. M5 OT- IP IADL's Start: 03/08/21 12:07 Freq: Status: Active Protocol: Document 03/08/21 11:12 [facility] (Rec: 03/08/21 12:26 [facility] [id number]) OT-Instrumental Activities of Daily Living Home Safety Awareness Awareness of Need for Assistance at Home Good Awareness Medication Management Medication Management No Deficits Identified Money Management Money Management No Deficits Identified Meal Preparation Meal Preparation Comments If pt going home will require assist. Form Setter Helper Form Setter Helper Comments If pt going home will require assist. M6 OT- IP Functional Cognition Start: 03/08/21 12:07 Freq: Status: Active Protocol: Document 03/08/21 11:12 [facility] (Rec: 03/08/21 12:26 [facility] [id number]) Cognitive Factors Limiting Selfcare Function Cognitive Ability Level of Alertness Alert Patient Orientation Name,Place,Situation Attention Span Ability Capable of Focused Attention, Capable of Sustained Attention Ability to Follow Commands Able to Follow One Step Commands Safety Awareness Decreased Ability to Apply Precautions Cognitive Comments Cognitive Assessment Comments Pt able to follow commands for bed mobility needs. Pt needing reminders to follow TTWB during with FWW and sliding board. OT- Vision and Hearing OT- Hearing Assessment OT- Hearing Assessment WFL OT- Vision Assessment Visual Acuity Glasses All The Time M7 OT- IP Mobility and Balance Start: 03/08/21 12:07 Freq: Status: Active Protocol: Document 03/08/21 11:12 [facility] (Rec: 03/08/21 12:26 [facility] [id number]) OT- Bed Mobility Assessment Supine to Sit Supine to Sit Assist Maximum Assistance,2 Person Assistance,Head of Bed Elevated,Bedrails Scooting Scooting to Edge of Bed Maximum Assistance,2 Person Assistance OT-Transfer Assessment Sit to and From Stand Sit to and from Stand Maximum Assistance,2 Person Assistance Transfers Transfer Ability Maximum Assistance,2 Person Assistance Technique Transfer Destination Bed,Chair Transfer Technique Lateral Scoot Devices Transfer Assistive Devices Gait Belt,Sliding Board Comments Mobility Comments Pt attempted to stand with FWW and unable to stand and maintain TTWB even with MAX AX 2. Able to transfer pt with sliding board transfer with MAX AX 2. Still recommend nursing to use jose lift for pt's transfers. OT- Balance Assessment Sitting Balance and Reactions Static Sitting Balance Ability Good Dynamic Sitting Balance Ability Fair Standing Balance and Reactions Static Standing Balance Ability Poor M8 OT- IP Objective Assessments Start: 03/08/21 12:07 Freq: Status: Active Protocol: Document 03/08/21 11:12 [facility] (Rec: 03/08/21 12:26 [facility] [id number]) OT Gross Range of Motion Upper Extremity Range of Motion Assessment Left Impaired OT Strength Upper Extremity Strength Assessment Left Impaired OT-Muscle Tone Assessment Muscle Tone WNL Yes M9 OT- IP Assessment and Plan Start: 03/08/21 12:07 Freq: Status: Active Protocol: Document 03/08/21 11:12 [facility] (Rec: 03/08/21 12:26 [facility] [id number]) OT Summary Assessment and Plan Potential Rehabilitation Potential Good Analytic Complexity at Evaluation Moderate Summary OT Impairments Pain,Strength,Balance, Functional Mobility,Dressing, Toileting,Bathing,Toilet Transfers,Shower Transfers, Activity Tolerance Progress Towards Goals Slow Progress due to Pain,Slow Progress due to Medical Issues,Slow Progress due to Activity Tolerance Assessment Summary Pt MOD complexity and here due to a GLF and now left superior/inferior public rami fx and main barrier are pain, step and needing extensive assist for all ADL and transfer needs. Pt is LLE TTWB thus making her require more assist for her needs. Strongly recommended that pt go to skilled rehab before going home. Pt is very determined and motivated to get better and also has a supportive family. Goals Grooming Goal Independent Dressing Goal Independent Toileting Goal Independent Bathing Goal Independent Toilet Transfer Goal Independent Shower Transfer Goal Independent Patient/Caregiver Education Goal Demonstrate Post-Op Precautions Days to Meet Goals 45 Frequency of Treatment Frequency Of Treatment Once a Day Treatment Plan OT Treatment Plan ADL Training,Functional Mobility,Patient/Family Education,Discharge Planning Other Treatment Recommendations and Next sliding board transfer to [facility] Treatment Focus Discharge Recommendations OT Discharge Recommendations SNF Rehab Transportation Needs at Discharge Wheelchair/Cabulance
[2021-03-08] MEDS: OXYCODONE IR 5 MG TABLET PO (12:11)
[2021-03-08 13:50] LABS: COVID19 -Nasal RAPID Negative (Negative)
--- NOTE | 2021-03-08 14:47 | CM.DPC ---
Addendum entered by Bianca Cisneros R.N. 03/08/21 14:56: COVID swab results in, and negative. Original Note: DCP Cont: Met with patient earlier this morning, and she was having increased pain. Prior, had spoken to Jimbo at [facility], who stated that they may be able to take patient on a COVID waiver, since she is in [place]. Chelsea at [facility] indicated that they may take on a waiver, as well as [facility]. Spoke to patient's daughter, Hugo Campos, who also resides on [place]. She indicated, she is really hopeful that her mom can have a private room. This personal financial planner had attempted to get her a private room, but both [facility] and [facility] are not able to accomidate. Daughter is hopeful to have her closer so she and family can visit, and have already contacted [facility]. Hugo, patient's daughter, had indicated that her daughter had spoken to Kennedi, and that the fee would be $400.00 a day. Found out that this is to hold the extra bed in the room, so no one will be rooming with her, for the COVID waiver is covering her main stay with therapy on board. Confirmed this with Kennedi at [facility]. Stated, she would be a good candidate for the COVID waiver because she is skillable, and they can enter this information on their forms. Gave patient's daughter Kennedi's phone number so she can work out payment for private room. Kennedi already has copy of COVID vaccine, and rapid COVID will be ordered. Plan is for discharge tomorrow. Kennedi will relay to Meghann, who will be working with [facility] tomorrow, and will attempt noon to 1300 warehouse order picker, but will call in the am to verify. Have updated daughter and hospitalist. Completing PASSR now. P: Patient will be going to [facility] tomorrow on COVID waiver, and will be paying extra for a private room. Will have more information in the am as far as time. Completed PASSR, will need orders. Bianca Cisneros RN/Door Closer
--- NOTE | 2021-03-08 15:51 | P.PN_ITS ---
Subjective Subjective Date Patient Seen: 03/08/21 Time Patient Seen: 08:00 Interval history: Today she is not feeling good. Having suprapubic pain. She was able to mobilize slightly more, however she also realizes now that she does not think she can function well at home. Exam Vital Signs (past 8 hours): - 03/08/21 08:00 03/08/21 08:27 03/08/21 11:46 Temperature 97.0 F L 97.6 F Pulse Rate 74 75 79 Respiratory Rate 16 16 Blood Pressure 145/70 H 145/70 H 142/65 H Pulse Oximetry 96 96 03/08/21 12:00 Temperature Pulse Rate Respiratory Rate Blood Pressure Pulse Oximetry 95 Oxygen Delivery Method Room Air Oxygen Flow Rate 2 Narrative Exam Narrative: General:?no acute distress Lungs:? clear bilaterally Cardio:? regular rate and rhythm without murmur Abdomen:? Soft nontender, negative for organomegaly, or masses. EXT: warm and well perfused, no edema, Objective Labs Result Diagrams: 03/07/21 05:46 03/07/21 05:46 Labs: Laboratory Results - last 24 hr 03/08/21 13:18 SARS-CoV-2 (PCR) Negative [facility] Medical History Acquired hypothyroidism Essential hypertension Surgical History History of tonsillectomy Family History Father Emphysema lung Sister No problems noted. Social History household members: none Smoking Status: Never smoker Assessment & Plan Assessment & Plan narrative: Ms. Chakraborty is a 85W with PMH of HTN, HL who presents after a fall found to have nondisplaced fracture pelvic fracture 1. Mechanical ground level fall, resulting in small nondisplaced fractures of the left superior and inferior pubic rami and in the left anterior acetabulum, acute, present on admission -ortho consult Dr. Johnson, decided nonsurgical issue -recommend PT and OT evaluation -pain management 2. Essential hypertension, exacerbation, acute on chronic, present on admission -initial BP 171/79 -continue patient's lisinopril 3. Acquired hypothyroidism, chronic, present on admission -continue patient's levothyroxine 4. Hyperlipidemia, chronic, present on admission -continue patient's Lipitor Code status: Full code Surrogate decision maker:? Daughter Hugo Campos Dispo: attempting to arrange SNF as patient is medically stable, but unable to return home given her inability to mobilize Time Spent With Patient Critical Care time: I spent a total of [] minutes of critical care time on this patient's care today; this time is exclusive of procedural time.
--- NOTE | 2021-03-08 18:31 | PM.PN.1 ---
Subjective Subjective Date Patient Seen: 03/08/21 Time Patient Seen: 18:31 Interval history: The patient is complaining of mild left hip and left knee pain which is worse with standing and weight-bearing. She denies any numbness or tingling in her bilateral lower extremities. No fevers, chills, night sweats. Denies nausea or vomiting. Overall she is doing well and is planning on being discharged to SNF tomorrow. Exam Vital Signs (past 8 hours): - 03/08/21 11:46 03/08/21 12:00 03/08/21 15:50 Temperature 97.6 F 96.5 F L Pulse Rate 79 79 Respiratory Rate 16 17 Blood Pressure 142/65 H 142/97 H Pulse Oximetry 96 95 96 03/08/21 16:20 Temperature Pulse Rate Respiratory Rate Blood Pressure Pulse Oximetry 96 Oxygen Delivery Method Room Air Oxygen Flow Rate 0 Narrative Exam Narrative: Pleasant 85-year-old female, resting comfortably in her chair, no acute distress. Bilateral lower extremity motor functions are grossly intact. Bilateral lower extremity sensation is grossly intact to light touch. Calves are soft, nontender to palpation. No pain in the left hip with a log roll. Her left knee has some ecchymosis and an abrasion. Objective Labs Result Diagrams: 03/07/21 05:46 03/07/21 05:46 Labs: Laboratory Results - last 24 hr 03/08/21 13:18 SARS-CoV-2 (PCR) Negative [facility] Medical History Acquired hypothyroidism Essential hypertension Surgical History History of tonsillectomy Family History Father Emphysema lung Sister No problems noted. Social History household members: none Smoking Status: Never smoker Assessment & Plan Assessment & Plan narrative: Mechanical ground level fall, resulting in small nondisplaced fractures of the left superior and inferior pubic rami and in the left anterior acetabulum -planning on nonsurgical treatment as these are nondisplaced fractures -mobilize with PT and OT -toe-touch weight-bearing as tolerated with front wheeled walker -pain management -planning on discharge to SNF tomorrow Time Spent With Patient Critical Care time: I spent a total of [] minutes of critical care time on this patient's care today; this time is exclusive of procedural time.
[2021-03-08] MEDS: SENNOSIDES 8.6 MG TABLET 17.2 MG PO (20:56)
[2021-03-08] MEDS: AMITRIPTYLINE 25 MG TABLET PO (20:56)
[2021-03-08] MEDS: DOCUSATE 100 MG CAPSULE PO (20:56)
[2021-03-08] MEDS: ATORVASTATIN 20 MG TABLET 40 MG PO (20:56)
[2021-03-08] MEDS: SODIUM CHLORIDE 0.9% FLUSH 10 ML IV (21:00)
[2021-03-09] VITALS (7 sets, daily range): BP systolic 124–151; BP diastolic 62–80; PULSE 66–71; RESP 16–18; TEMP 36.8–36.9; O2SAT 94–96
[2021-03-09] MEDS: LEVOTHYROXINE 100 MCG TABLET PO (05:23)
[2021-03-09 07:04] LABS: Hematocrit 41.3 % (36-46); Hemoglobin 13.8 g/dL (12.0-16.0); Mean Corpuscular HGB Conc 33.5 % (30-36); Mean Corpuscular Volume 98.4 fL (80-100); Platelet Count 209 X10^3/uL (150-400); Red Cell Distribution Width 13.5 % (11.6-14.8); White Blood Cell Count 9.1 X10^3/uL (4.5-11.0)
[2021-03-09 07:16] LABS: BUN Creatinine Ratio 19.4 (6-22); Blood Urea Nitrogen 13 mg/dL (7-17); Calcium 8.7 mg/dL (8.4-10.2); Carbon Dioxide 25 mmol/L (22-32); Chloride 106 mmol/L (98-107); Estimated Glomerular Filt Rate > 60.0 mL/min (>60); Glucose 93 mg/dL (80-110); HEMOLYSIS < 15 (0-50); Potassium 4.2 mmol/L (3.4-5.1); Sodium 133 mmol/L (137-145)
--- NOTE | 2021-03-09 09:05 | P.DS_ITS ---
History of Present Illness History of Present Illness Chief complaint: Possible Left Hip Fracture Narrative: Per Nel Sal: Patient is an 85-year-old female Jia Palmer with a history hypertension, polymyalgia rheumatica-chronic prednisone , and hypothyroidism [place] garden and lost her footing and fell down her left hip pelvis area as well as left knee. No previous hip or knee or pelvis injury or surgery or fractures. Pain with attempts to bear weight, or movement. Leg is not shortened or rotated. Patient states up-to-date with tetanus shot. Has abrasions to the left elbow. Denies any other injuries. No head or neck or back injury. Patient denies chest pain, shortness of breath, headache, changes in vision, abdominal pain, nausea, vomiting, neck pain, numbness, tingling, weakness, other than pain with pelvic movement. Patient is resting comfortably in bed and states that she is in no pain if she lays perfectly still in the bed. Patient is unable to get up and ambulate or move at all. Patient's vitals in the ED demonstrated some mild hypertension with a BP 171/79, HR 77, R 17, O2 saturation 98% on room air. No labs were drawn in the ED. patient's lower extremity CT demonstrated left knee small joint effusion without fracture or dislocation, pelvis CT demonstrated small displaced fractures of the left superior and inferior pubic ramus and in left anterior acetabulum. All orthopedic Dr. Johnson reviewed imaging and will consult tomorrow but believes it will be managed with conservative therapy and will not require surgical intervention. Patient admitted for pelvic fractures secondary to mechanical ground level fall. Discharge Providers Provider Date of admission: 03/07/21 02:10 Discharge Date: 03/09/21 Primary care physician: Josue Quintana MD Consults: 03/07/21 02:12 Consult to Physician Routine Comment: Consulting Provider: Jake Johnson Reason for consultation: Left superior/inferior pubic rami knee and left anterior acetabulum fx Has provider been notified: Yes 03/07/21 11:56 Consult to Physical Therapy Evaluate & Treat Comment: Patient is toe-touch weight-bearing to the LLE Physician Instructions: Evaluate and Treat 03/08/21 10:58 Consult to Occupational Therapy Evaluate & Treat Comment: Physician Instructions: Evaluate and treat 03/08/21 18:07 Consult to Dietitian, Adult Routine Comment: Reason For Exam: very little appetite. Discharge provider: Jason Keating MD Summary Hospital Course Discharge Diagnosis: 1. Nondisplaced pelvic fracture and left anterior acetbaulum fracture 2. Hypertension 3. Hypothyroidism 4. Hyperlipidemia Hospital Course: Ms. Chakraborty had a mechanical fall. She was found to have small n ondisplaced fractures of the left superior and inferior pubic rami and in the left anterior acetabulum. Ortho was consulted and said patient was partial weightbearing on this leg. She could not ambulate safely alone, and live alone. This was due to pain. She was discharged with pain medications to SNF for PT/OT. She was referred to follow up orthopedics in 2 weeks. Exam Vital Signs (past 8 hours): Oxygen Delivery Method Room Air Oxygen Flow Rate 0 Narrative Exam Narrative: General: no acute distress Lungs: clear bilaterally Cardio: regular rate and rhythm without murmur Abdomen: Soft nontender, negative for organomegaly, or masses. EXT: warm and well perfused, no edema Objective Labs Result Diagrams: 03/09/21 06:50 03/09/21 06:50 [facility] Medical History Acquired hypothyroidism Essential hypertension Surgical History History of tonsillectomy Family History Father Emphysema lung Sister No problems noted. Social History household members: none Smoking Status: Never smoker Discharge Plan Discharge Plan Patient Disposition: SNF Provider Discharge Comment: Ms. Chakraborty came in with a fall, she was found to have a pelvic and acetabular fracture on the left. Orthopedic surgery was consulted and said she did not need surgery. She can follow up with orthopedic surgery in 2 weeks. I certify the postop hospital fdc care is medically necessary on a continuing basis for any conditions for which he/ she received care during this hospitalization.: Yes The receiving facility has agreed to accept transfer and provide medical treatment.: Yes Discharge orders & Medications Prescriptions: New acetaminophen 325 mg Tablet 650 mg PO Q6HR PRN (Reason: Fever/Mild Pain (1-3)) Qty: 30 RF: 0 docusate sodium 100 mg Capsule 100 mg PO BID Qty: 60 RF: 0 ibuprofen 600 mg Tablet 600 mg PO Q6HR PRN (Reason: Fever/Mild Pain (1-3)) Qty: 30 RF: 0 polyethylene glycol 3350 17 gram Powder In Packet 17 gm PO DAILY PRN (Reason: Constipation) Qty: 30 RF: 0 oxycodone 5 mg Tablet 10 mg PO Q3HR PRN (Reason: Pain, Severe (7-10)) Qty: 30 RF: 0 oxycodone 5 mg Tablet 5 mg PO Q3HR PRN (Reason: Pain, Moderate (4-6)) Qty: 30 RF: 0 sennosides [senna] 8.6 mg Tablet 17.2 mg PO BEDTIME Qty: 30 RF: 0 Continued Fish Oil 1,000 mg PO BID Qty: 0 RF: 0 CHOLECALCIFEROL (VITAMIN D3) (Vitamin D3) 800 unit PO QDAY Qty: 0 RF: 0 Lutein (#LUTEIN) 20 mg PO QDAY Qty: 0 RF: 0 aspirin 81 MG tablet,chewable 81 mg PO QDAY Qty: 0 RF: 0 [coenzyme Q10] 200 mg OR QDAY Qty: 30 RF: 0 metronidazole [MetroCream] 0.75 % cream 1 jonel Topical SEE INSTRUCTIONS Qty: 45 RF: 2 levothyroxine 100 MCG tablet 0.1 mg PO Q DAY Qty: 90 RF: 3 lisinopril 10 MG tablet 10 mg PO QDAY Qty: 90 RF: 3 atorvastatin [Lipitor] 40 MG tablet 40 mg PO HS Qty: 90 RF: 3 amitriptyline 25 mg tablet 25 mg PO BEDTIME RF: 0 prednisone 5 mg tablet 5 mg PO DAILY RF: 0 prednisone 1 mg tablet 3 mg PO DAILY RF: 0 Follow up/Referrals: Jake Johnson MD [Physician] - (Follow-up in 10-14 days) Josue Quintana MD [Primary Care Provider] - Diet/Activity/Treatments Diet: Low-sodium Food texture: Regular Activity: Toe-touch/partial weight-bearing as tolerated with a front wheeled walker [facility] Rehab type: Physical therapy and Occupational therapy Discharge Data Primary Care Provider: Josue Quintana Attending Provider: Nel Sal MIPS - DC The patient has current or prior documentation of left ventricular ejection fraction (LVEF) less than 40%, or moderate or severely depressed left ventricular systolic function.: No
--- NOTE | 2021-03-09 09:10 | CM.DPC ---
Addendum entered by Bianca Cisneros R.N. 03/09/21 11:00: Have signed medication list and prescriptions. Faxed them to [facility]. Included PASSR, recent COVID results from yesterday, vaccine information, as well as today's progress note from ortho. Pending DC Summary. Gave report name and number to nurse, Charmaine. Patient will be going with [facility]on, since she is unable to use bed chaudhary. Original Note: DCP Cont: Patient is to be discharged today. Spoke to Meghann in admissions at [facility], and they plan on picking her up at noon. Updated daughter, Hugo. She indicated, [place], but the ferries are backed up. Orders are currently pending, but have completed PASSR, updated COVID test and vaccines. Will attempt to update patient on time, she has been sleeping, and let her know that daughter may not be able to get here. P: Patient is to be going to [facility] at noon. Awaiting signed med sheets. Bianca Cisneros RN/Assistant Statistician
[2021-03-09] MEDS: predniSONE 1 MG TABLET 8 MG PO (09:27)
[2021-03-09] MEDS: DOCUSATE 100 MG CAPSULE PO (09:27)
[2021-03-09] MEDS: lisinopriL 10 MG TABLET PO (09:27)
[2021-03-09] MEDS: FISH OIL 1,000 MG CAPSULE 1000 MG PO (09:27)
[2021-03-09] MEDS: HEPARIN 5,000 UNIT/ML VIAL 5000 UNIT SUBCUT (09:27)
[2021-03-09] MEDS: ASPIRIN EC 81 MG TABLET PO (09:27)
[2021-03-09] MEDS: CHOLECALCIFEROL (VITAMIN D3) 400 UNIT TABLET 800 UNIT PO (09:28)
[2021-03-09] MEDS: polyethylene glycoL 3350 17 GM POWD.PACK PO (09:30)
[2021-03-09] MEDS: OXYCODONE IR 5 MG TABLET PO (09:34)
--- NOTE | 2021-03-09 10:19 | PM.PN.1 ---
Subjective Subjective Date Patient Seen: 03/09/21 Time Patient Seen: 10:20 Interval history: The patient's pain is mild when she is not moving. She notes she has moderate to severe pain with significant movement of the left leg. She is working with physical therapy and is ambulating with a front wheeled walker. She denies fevers, chills, night sweats. No nausea or vomiting. No numbness or tingling in bilateral lower extremities. Overall she is feeling okay and is planning on to being discharged to an SNF today Exam Vital Signs (past 8 hours): - 03/09/21 04:00 03/09/21 04:48 03/09/21 07:59 Temperature 98.5 F 98.3 F Pulse Rate 66 71 Respiratory Rate 16 18 Blood Pressure 124/62 145/68 H Pulse Oximetry 94 94 96 03/09/21 08:00 Temperature Pulse Rate Respiratory Rate Blood Pressure Pulse Oximetry 96 Oxygen Delivery Method Room Air Oxygen Flow Rate 0 Narrative Exam Narrative: Pleasant 85-year-old female, resting comfortably in bed, no acute distress. She has had pain in her left hip with a log roll. Bilateral lower extremity motor functions are grossly intact. Sensation is intact to light touch in bilateral lower extremities. Bilateral calves are soft, nontender to palpation. Objective Labs Result Diagrams: 03/09/21 06:50 03/09/21 06:50 Labs: Laboratory Results - last 24 hr 03/08/21 03/09/21 03/09/21 13:18 06:50 06:50 WBC 9.1 RBC 4.20 Hgb 13.8 Hct 41.3 MCV 98.4 MCH 33.0 MCHC 33.5 RDW 13.5 Plt Count 209 Sodium 133 L Potassium 4.2 Chloride 106 Carbon Dioxide 25 BUN 13 Creatinine 0.67 Estimated GFR > 60.0 BUN/Creatinine Ratio 19.4 Glucose 93 Calcium 8.7 SARS-CoV-2 (PCR) Negative [facility] Medical History Acquired hypothyroidism Essential hypertension Surgical History History of tonsillectomy Family History Father Emphysema lung Sister No problems noted. Social History household members: none Smoking Status: Never smoker Assessment & Plan Assessment & Plan narrative: CT scan showed a nondisplaced fracture involving the left superior and inferior rami as well as the acetabulum. Patient with nondisplaced fractures involving the pelvis in the acetabulum on the left side.? Due the fact that these are nondisplaced this is something that can be treated non operatively.? -mobilize with physical therapy to work on gait and ambulation -partial/toe-touch weight-bearing as tolerated with front wheeled walker -continue with current pain regimen -DC to SNF today -follow-up with Ortho in 10-14 days Time Spent With Patient Critical Care time: I spent a total of [] minutes of critical care time on this patient's care today; this time is exclusive of procedural time.
--- NOTE | 2021-03-09 11:14 | PC.NURSE ---
Addendum entered by Charmaine Cormier R.N. 03/09/21 12:17: Patient transferred to chair with the help of OT/PT and transferred to wheelchair with OT assist for transfer to [facility]. Patient tolerated. Mckeon remains intact. Patient denies further needs at this time, belongings gathered, patient and daughter deny belongings in safe or pharmacy. Patient discharged via wheelchair. Original Note: Patient resting in bed. IV removed for discharge. Patient prefers to keep mckeon in d/t pain with movement, MD is OK with this. Report given to Smitha at [facility]. Patient is tolerating fluids and PO intake. Denies n/v. Abdomen soft, non tender, last BM 03/07 per patient, given PRN Mirilax, BT active x 4. Patient rates pain 10/10 with movement but at rest reports it is 2/10, requests only 5 mg oxy before working with PT since she gets foggy with 10mg. Call light in reach, denies needs at this time.
--- NOTE | 2021-03-09 11:52 | PT.IPTN ---
Physical Therapy Treatment Note M2 PT-IP Current Condition Start: 03/07/21 17:01 Freq: NEEDED Status: Active Protocol: Document 03/07/21 13:50 AB (Rec: 03/07/21 17:21 AB [id number]) Physical Therapy Current Condition Current Condition Evaluation Date 03/07/21 Treatment Diagnosis GLF; L sup/inf pubic rami fx; difficulty in walking Onset Date 03/07/21 Precautions Other Precautions falls Weight Bearing Status Weight Bearing Status Touch Down Weight Bearing Allowed Weight Bearing Amount (enter % TTWB LLE or #) (%) Per Dr. Johnson's note: PWB but on actual order TTWB M3 PT-IP Subjective Start: 03/07/21 17:01 Freq: NEEDED Status: Active Protocol: Document 03/09/21 11:12 CLB (Rec: 03/09/21 12:18 CLB [id number]) Subjective Physical Therapy Visit Type Type Treatment Note Visit Start Time 11:12 Visit Stop Time 11:52 Total Visit Minutes 40 Notes Co-treat with OT daughter present Number of [employer] [facility] [employer]PER[employer]OR Visits 2 Physical Therapy Visit Comments Patient Comments Pt willing to do PT Therapy Pain Assessment Pain When Pain Assessed During Mobility Pain Present Pain Present Pain Reported Location left hip Scale Used did not state Pain Behaviors Crying,Moaning,Wincing Pain Management Techniques Distraction,Modification of Treatment,Re-positioning, Timing of Activity with Medications M4 PT-IP Mobility and Gait Start: 03/07/21 17:01 Freq: NEEDED Status: Active Protocol: Document 03/09/21 11:12 CLB (Rec: 03/09/21 12:18 CLB [id number]) PT-Bed Mobility Assessment Supine to Sit Supine to Sit Maximum Assistance,2 Person Assistance,Head of Bed Elevated,Bedrails Scooting Scooting to Edge of Bed Standby Assistance PT-Transfer Assessment Sit to and From Stand Sit to and from Stand Maximum Assistance,2 Person Assistance,Use of Upper Extremities Equipment Transfer Assistive Device Gait Belt,Front Wheeled Walker Orthotic/Prosthetic Devices or Brace: No Transfers Transfer Destination Chair,Bedside Commode Transfer Technique Stand Pivot Transfer Ability Level of Assist Moderate Assistance,Maximum Assistance,2 Person Assistance ,Use of Upper Extremities Comments Mobility Comments Pt requiring Max A x2 to get to EOB then pt able to scoot forward so feet are touching the floor. Pt stood requiring Max A x2. Pt then performed stand pivot to BSC with cues and assist with walker management. Pt sat on BSC with assist with slowing descent. Pt able to sit on BSC SBA with good sitting balance. Pt stood from BSC Max A x2 and performed stand pivot to chair going to right. Pt left in chair with all needs within reach with ENGAGEMENT MANAGER and daughter in room. Gait Assessment Comments Gait Comments unable at this time PT-Balance Assessment Sitting Balance and Reactions Static Sitting Balance Ability Normal Dynamic Sitting Balance Ability Normal Standing Balance and Reactions Static Standing Balance Ability Poor Dynamic Standing Balance Ability Poor Device Used FWW M5 PT-IP Objective Assessments Start: 03/07/21 17:01 Freq: NEEDED Status: Active Protocol: Document 03/07/21 13:50 AB (Rec: 03/07/21 17:21 AB [id number]) Orientation Orientation/Cognition Level of Alertness Alert Orientation Name,Place,Situation Language Function Ability Hard of Hearing Safety Awareness Decreased Safety Awareness Gross Range of Motion Lower Extremity ROM Assessment Left Impaired Impairments increase guarding and c/o pain with PROM Strength Lower Extremity Strength Hip 3-/5 Knee 3+/5 Comments Strength Comments pain affecting LLE strength Muscle Tone Muscle Tone WNL Yes M6 PT-IP Treatment Start: 03/07/21 17:01 Freq: NEEDED Status: Active Protocol: Document 03/07/21 13:50 AB (Rec: 03/07/21 17:21 AB [id number]) Physical Therapy Treatment Education Education Provided Weight Bearing Status,Safety M7 PT-IP Assessment and Plan Start: 03/07/21 17:01 Freq: NEEDED Status: Active Protocol: Document 03/09/21 11:12 CLB (Rec: 03/09/21 12:18 CLB [id number]) PT Summary Assessment and Plan Potential Rehabilitation Potential Fair Status of Condition at Evaluation Evolving Summary Impairments Pain,ROM,Strength,Balance, Coordination,Sensation,Bed Mobility,Transfers,Gait, Activity Tolerance Progress Towards Goals Slow Progress due to Pain,Slow Progress due to Activity Tolerance Assessment Summary Pt requiring Max A x2 for bed mobility, Max X2 for sit-stand and Max-Mod A for stand pivot tranfer. Pt with good sitting balance while sitting on EOB, BSC and chair. Pt will benefit from SNF rehab to increase strength for functional mobility. Goals Bed Mobility Goal Contact Guard Assistance Transfer Goal Contact Guard Assistance,Front Wheeled Walker Gait Goal Contact Guard Assistance,Front Wheel Walker Gait Distance 50 Other Goals up/down 1 step using FWW CGA Days to Meet Goals 10 Frequency of Treatment Frequency Of Treatment Once a Day Treatment Plan Physical Therapy Treatment Plan Bed Mobility Training,Transfer Training,Gait Training, Therapeutic Exercise,Balance Retraining,Discharge Planning, Hot or Cold Pack,Neuromuscular Re-ed,Coordination Retraining Precautions Other Precautions falls TTWB LLE Per Dr. Johnson's note: PWB but on actual order TTWB LLE Recommendations To Nursing Amount of Assist Needed Mechanical Lift Discharge Recommendations PT Discharge Recommendations SNF Rehab Transportation Needs at Discharge Wheelchair/Cabulance
--- NOTE | 2021-03-09 12:17 | OT.IP.TRT ---
Occupational Therapy Treatment Note M2 OT-IP Current Condition Start: 03/08/21 12:07 Freq: Status: Active Protocol: Document 03/08/21 11:12 [facility] (Rec: 03/08/21 12:26 [facility] [id number]) Occupational Therapy Current Condition Current Condition Evaluation Date 03/08/21 Treatment Diagnosis GLF, left supine, public rami fx, decreased mobility Diagnosis Onset Date 03/07/21 Weight Bearing Status Weight Bearing Status Touch Down Weight Bearing M3 OT- IP Subjective and Pain Start: 03/08/21 12:07 Freq: Status: Active Protocol: Document 03/09/21 12:04 [facility] (Rec: 03/09/21 12:17 [facility] [id number]) OT- Subjective Occupational Therapy Visit Type Type Treatment Note Visit Start Time 11:11 Visit Stop Time 12:03 Total Visit Minutes 50 Notes Pt seen from [id number] and [id number]. Occupational Therapy Visit Comments Patient Comments Pt agreed to try to get up and needing to use the BSC. Patient/Caregiver Goals To go home. OT Pain Assessment Pain When Pain Assessed At Rest Pain Present Pain Present Denied Pain M4 OT- IP ADL's Start: 03/08/21 12:07 Freq: Status: Active Protocol: Document 03/09/21 12:04 [facility] (Rec: 03/09/21 12:17 [facility] [id number]) OT DUS-Rzgu-Rplsmop General Evaluation Self-Feeding Ability Independent OT ADL-Grooming Comments OT Grooming Comments Not performed. OT ADL-Oral Care Comments Oral Care Comments Not performed. OT ADL-Dressing General Eval Lower Body Dressing Ability Maximum Assistance Comments OT Dressing Comments Assist for socks, help with the brief over her feet and up over her hips. OT ADL-Toileting General Evaluation Toileting Ability Moderate Assistance Areas Needing Assistance Manage Clothing Comments OT Toileting Comments Able to scoot forwards on the BSC and able to reach to wipe from behind after having a small bowel movement. Pt just mainly needing assist for brief management needs. M5 OT- IP IADL's Start: 03/08/21 12:07 Freq: Status: Active Protocol: Document 03/08/21 11:12 [facility] (Rec: 03/08/21 12:26 [facility] [id number]) OT-Instrumental Activities of Daily Living Home Safety Awareness Awareness of Need for Assistance at Home Good Awareness Medication Management Medication Management No Deficits Identified Money Management Money Management No Deficits Identified Meal Preparation Meal Preparation Comments If pt going home will require assist. Order Checker Order Checker Comments If pt going home will require assist. M6 OT- IP Functional Cognition Start: 03/08/21 12:07 Freq: Status: Active Protocol: Document 03/09/21 12:04 [facility] (Rec: 03/09/21 12:17 [facility] [id number]) Cognitive Factors Limiting Selfcare Function Cognitive Ability Level of Alertness Alert Patient Orientation Name,Place,Situation Attention Span Ability Capable of Focused Attention, Capable of Sustained Attention Ability to Follow Commands Able to Follow One Step Commands Safety Awareness No Deficits Noted Cognitive Comments Cognitive Assessment Comments Pt able to follow commands better but having difficulty to motor plan how to slide her right foot side to side in order to transfer to the BSC with. M7 OT- IP Mobility and Balance Start: 03/08/21 12:07 Freq: Status: Active Protocol: Document 03/09/21 12:04 [facility] (Rec: 03/09/21 12:17 [facility] [id number]) OT- Bed Mobility Assessment Supine to Sit Supine to Sit Assist Maximum Assistance,2 Person Assistance,Head of Bed Elevated,Bedrails Scooting Scooting to Edge of Bed Standby Assistance OT-Transfer Assessment Sit to and From Stand Sit to and from Stand Maximum Assistance,2 Person Assistance Transfers Transfer Ability Moderate Assistance,Maximum Assistance,2 Person Assistance Technique Transfer Destination Bed,Bedside Commode,Chair Transfer Technique Stand Step Pivot Devices Transfer Assistive Devices Gait Belt,Front Wheeled Walker Comments Mobility Comments Pt still needing MAX X 2 and use of green pad to help get to the edge of the bed. MAX AX 2 to stand to FWW and MODA/ MAXA X 2 to transfer by sliding her right foot side to side in order to get to the BSC. Pt also needing MODA /MAX AX 2 to transfer to the recliner. Pt needing MAXA x2-3 to help stand from the recliner to FWW so able to switch out to the . OT- Gait Assessment Comments Gait Ability Comments Transfer only at this time. OT- Balance Assessment Sitting Balance and Reactions Static Sitting Balance Ability Normal Dynamic Sitting Balance Ability Good Standing Balance and Reactions Static Standing Balance Ability Poor M8 OT- IP Objective Assessments Start: 03/08/21 12:07 Freq: Status: Active Protocol: Document 03/08/21 11:12 [facility] (Rec: 03/08/21 12:26 [facility] [id number]) OT Gross Range of Motion Upper Extremity Range of Motion Assessment Left Impaired OT Strength Upper Extremity Strength Assessment Left Impaired OT-Muscle Tone Assessment Muscle Tone WNL Yes M9 OT- IP Assessment and Plan Start: 03/08/21 12:07 Freq: Status: Active Protocol: Document 03/09/21 12:04 [facility] (Rec: 03/09/21 12:17 [facility] [id number]) OT Summary Assessment and Plan Potential Rehabilitation Potential Good Analytic Complexity at Evaluation Moderate Summary OT Impairments Pain,Strength,Balance, Functional Mobility,Dressing, Toileting,Bathing,Toilet Transfers,Shower Transfers, Activity Tolerance Progress Towards Goals Progressing Toward Goals Assessment Summary Pt making good gains today and able to transfer to the [facility] and with MAX Ax2 with FWW. Pt able to maintain her TTWB status with vc. Pt looking to go to skilled rehab today. Goals Grooming Goal Independent Dressing Goal Independent Toileting Goal Independent Bathing Goal Independent Toilet Transfer Goal Independent Shower Transfer Goal Independent Patient/Caregiver Education Goal Demonstrate Post-Op Precautions Days to Meet Goals 30 Frequency of Treatment Frequency Of Treatment Once a Day Treatment Plan OT Treatment Plan ADL Training,Functional Mobility,Patient/Family Education,Discharge Planning Discharge Recommendations OT Discharge Recommendations SNF Rehab Transportation Needs at Discharge Wheelchair/Cabulance
== END 2021-03-09 12:00 ==
LOC: ED 03-07 02:04 → AC 03-07 02:12
PROVIDERS: Internal Medicine; Admitting Provider Nurse Practitioner Family; Emergency Provider Emergency Medicine; Family Provider Family Medicine; PCP Family Medicine; Referring Provider Emergency Medicine; Visit Provider Nurse Practitioner Family
DX: S32.492A Other specified fracture of left acetabulum, initial encounter for closed fracture (principal); S32.512A Fracture of superior rim of left pubis, initial encounter for closed fracture; M25.462 Effusion, left knee; W01.0XXA Fall on same level from slipping, tripping and stumbling without subsequent striking against object, initial encounter; Y93.H2 Activity, gardening and landscaping; E03.9 Hypothyroidism, unspecified; I10 Essential (primary) hypertension; Z20.822 Contact with and (suspected) exposure to COVID-19; E78.5 Hyperlipidemia, unspecified
CPT/HCPCS: 36415; 72192; 73502; 73700; 80048; 82533; 83735; 85025; 85027; 87635; 94760; 96361; 96372; 96374; 96375; 96376; 97162; 97166; 97530; 97535; 99284; C9803; G0378; A9270; J1644; J2270; J2405

== ENCOUNTER → 2021-04-01 09:03 | Outpatient (CLI) | payer MEDICARE, OTHER, SELFPAY ==
[2021-03-07 04:18] VITALS: BMI 27.6
--- NOTE | 2021-04-01 | DI.RAD.S_ITS ---
PROCEDURE: XR PELVIS 1-2V INDICATIONS: Fracture of other parts of pelvis, initial encounter for prasanth TECHNIQUE: 1 view(s) of the pelvis acquired. COMPARISON: [facility], CT, CT PEL WO CON, 03/06/2021, 22:45. FINDINGS: Bones: There is sclerosis involving patient's known superior left sacral fracture site consistent with interval healing. There is also interval healing at patient's known left parasymphyseal pubic bone fracture site. Subtle sclerosis also seen involving patient's known nondisplaced left inferior pubic ramus fracture site. Patient's known nondisplaced left anterior acetabular wall fracture is not well seen on this study. Osteoarthritic changes are noted in bilateral hip joints. No new fracture or dislocation. No evidence of avascular necrosis of femoral head. No suspicious bony lesions. Soft tissues: Visualized bowel gas pattern is normal. No suspicious soft tissue calcifications. IMPRESSION: Interval healing at patient's known nondisplaced left susan pelvic fracture sites. Pelvic ring is intact. No gross new fracture or dislocation. Bilateral hip joint osteoarthritis. Dictated by: Jasper Souas M.D. on 04/01/2021 at 10:24 Approved by: Jasper Sousa M.D. on 04/01/2021 at 10:27
== END ==
PROVIDERS: Family Provider Family Medicine; PCP Family Medicine; Referring Provider Orthopaedic Surgery; Visit Provider Orthopaedic Surgery
DX: S32.89XA Fracture of other parts of pelvis, initial encounter for closed fracture (principal); M16.0 Bilateral primary osteoarthritis of hip
CPT/HCPCS: 72170

== ENCOUNTER → 2022-05-14 14:22 | Outpatient (CLI) | payer MEDICARE, OTHER, SELFPAY ==
[2021-03-07 04:18] VITALS: BMI 27.6
[2022-05-14 15:12] LABS: Appearance Urine UA SL CLOUDY; Bilirubin Urine UA NEGATIVE (NEGATIVE); Color Urine UA YELLOW; Glucose Urine UA NEGATIVE (Negative); Ketones Urine UA NEGATIVE (NEGATIVE); Leukocyte Esterase Urine UA 1+ (NEGATIVE); Nitrite Urine UA POSITIVE (Negative); Occult Blood Urine UA 1+ (Negative); Protein Urine UA NEGATIVE (Negative); Urobilinogen Urine UA 0.2 E.U./dL (0.2)
[2022-05-14 15:23] LABS: pH Urine UA 5.5 (4.5-8.0)
[2022-05-14 15:24] LABS: Amorphous Sediment Urine 1+; Bacteria Urine Many (>30); Culture Indicated Urine Specimen Cultured; Mucus Urine 1+ (Negative); RBC Urine 1-5/HPF (0-5/HPF); Squamous Epithelial Cell Urine 0-1 /HPF (0-5/HPF); WBC Urine 30-100/HPF (0-5/HPF)
== END ==
PROVIDERS: Family Provider Family Medicine; PCP Family Medicine; Referring Provider Orthopaedic Surgery; Visit Provider Orthopaedic Surgery
DX: N39.0 Urinary tract infection, site not specified (principal)
CPT/HCPCS: 81001; 87077; 87086; 87186

== ENCOUNTER 2022-05-21 12:23 | Observation (INO) | payer MEDICARE, OTHER, SELFPAY ==
[2021-03-07 04:18] VITALS: BMI 27.6
[2022-05-12 13:03] VITALS: BMI 26.6
[2022-05-20] VITALS (13 sets, daily range): BP systolic 107–162; BP diastolic 48–79; PULSE 62–87; RESP 10–22; TEMP 36.1–36.8; O2SAT 96–100; BMI 26.6
--- NOTE | 2022-05-20 | DI.RAD.S_ITS ---
PROCEDURE: XR HIP W PEL IF DONE RT 2V INDICATIONS: total right hip TECHNIQUE: 3 views of the hip were acquired. COMPARISON: [facility] ([facility]), CR, XR HIP W PEL IF DONE RT 2V, 02/26/2022, 14:45. FINDINGS: Bones: Generalized decrease in osseous mineralization noted. Total right prosthesis in good position. No evidence of fracture. Left hip joint space narrowing without head remodeling. Pelvic ring intact Soft tissues: No suspicious soft tissue calcifications or masses. IMPRESSION: Total right hip prosthesis in good position Approved by: Ankit Bryan M.D. on 05/20/2022 at 17:43
[2022-05-20 11:56] LABS: COVID19 -Nasal RAPID Negative (Negative)
[2022-05-20] MEDS: ACETAMINOPHEN 325 MG TABLET 975 MG PO (12:18)
[2022-05-20] MEDS: LACTATED RINGERS 1,000 ML 42 ML IV ×2 (12:18→16:01)
[2022-05-20] MEDS: CELECOXIB 200 MG CAPSULE PO (12:19)
[2022-05-20] MEDS: VANCOMYCIN 1,000 MG/200 ML PIGGYBACK 200 MG IV (13:17)
--- NOTE | 2022-05-20 14:00 | DI.RAD.S_ITS ---
PROCEDURE: XR HIP W PEL IF DONE RT 2V INDICATIONS: right total hip replacement TECHNIQUE: 2 intraoperative fluoroscopic spot films were obtained during a right hip replacement COMPARISON: [facility], [place], XR HIP W PEL IF DONE RT 2V, 05/20/2022, 17:04. FINDINGS: Low resolution intraoperative fluoroscopic spot films show right hip arthroplasty in progress IMPRESSION: Fluoroscopic guidance Approved by: Ankit Bryan M.D. on 05/20/2022 at 17:31
--- NOTE | 2022-05-20 14:04 | PM.PREOP ---
Pre-operative Note COVID-19 COVID-19 status: Negative Interval Note History & Physical reviewed/Exam performed by Physician: Yes Changes to H&P: No
[2022-05-20] MEDS: CEFAZOLIN 2 GM/100 ML PREMIX 100 ML IV ×2 (14:40→21:52)
[2022-05-20] MEDS: TRANEXAMIC ACID 1,000 MG VIAL 2000 MG INJ ×2 (14:50→16:34)
--- NOTE | 2022-05-20 15:18 | SUR.OPER ---
Supine on padded [place] table with bilateral legs secured in padded positioning boots and suspended in positioning spars, operative leg in traction per surgeon. Head on one pillow. Arm on non-operative side secured on padded armboard <90 degrees abduction. Arm on operative side padded and resting across chest then secured with tape over sheet. Padded perineal post in place per surgeon.
[2022-05-20] MEDS: BUPIVACAINE LIPOSOME 266 MG/20 ML VIAL INJ (15:30)
[2022-05-20] MEDS: BUPIVACAINE 0.25% (PF) 60 ML, EPINEPHrine 0.3 MG INJ (15:31)
--- NOTE | 2022-05-20 17:15 | P.OP_ITS ---
Operative Date/Time/Diagnoses Date of procedure: 05/20/22 Time of procedure: 14:30 Pre-op diagnosis: Right hip AVN Procedure & Clinicians Procedure: Right total hip arthroplasty anterior approach Same procedure as scheduled: Yes Indications: The patient has had progressively worsening right hip pain with radiographic changes consistent with arthritis. Non-operative management has failed and the patient has requested total hip replacement. The risks, benefits and alternatives to surgery were discussed with the patient prior to proceeding. Risks discussed included, but were not limited to, failure to relieve pain, leg length discrepancy, dislocation, stiffness, infection, nerve damage, deep venous thrombosis, pulmonary embolism, stroke, coma, heart attack, permanent paralysis and , as well as the potential need for eventual revision of the prosthetic. Surgeon: Aleta Campos Surveyor'S Assistant: Jatin Carcamo Anesthesia Type: General and Spinal Operative Notes Findings: Severe AVN right hip, adequate stability, soft bone Closure Type: primary Specimen(s): none sent Prosthetic devices, grafts, tissues, transplants, or devices: Campos and Nephew 48 mm R3 cup, size 6 standard offset anthology, 32 x +0 femoral head, one 6.5 mm screw Estimated Blood Loss (mL): 250 Blood products transfused: none Procedure in detail: The patient was brought to the operating room. Patient was carefully positioned in the supine position. Time-out was performed and antibiotics were given. Anesthesia was induced. She was positioned in the on the table in order to allow hyperextension of the hip. The right lower extremity was prepped and draped in a standard sterile fashion. An anterior right hip incision was made 1 fingerbreadth lateral to the anterior superior iliac spine and extended distally towards the greater trochanter. Dissection was carried out through skin and subcutaneous tissues. Superficial hemostasis was achieved. The fascia over the tensor fascia toshia was defined and incised with a knife. Two Allis clamps were used to grasp the fascia. Tensor fascia toshia was retracted laterally. A gelpi retractor was placed. Dissection was carried out down along the neck. The circumflex vessels were carefully identified and cauterized with the Aqua Mantis. There was good visualization of the femoral neck. A Cobra was placed superior to the neck and the gluteus fibers were carefully stripped from that superior aspect of the capsule. A 2nd retractor was placed along the inferior aspect of the neck. The rectus insertion along the capsule was partially released. A 3rd retractor that was then gently placed over the rim of the acetabulum under the rectus. Capsule was carefully incised and released from the intertrochanteric line circumferentially superior to the mid sagittal line and inferiorly to the mid sagittal line until the lesser trochanter was palpable. A tag stitch was placed both in the superior and inferior limb of the capsular insertion. Along the acetabulum capsule was also released up to the mid sagittal 12:00 position. A portion of the labrum was resected. A saw was used to perform an osteotomy at the level of the intertrochanteric line and the junction of the superior femoral neck leaving approximately 1 finger breath of residual inferior neck above the lesser trochanter. A 2nd cut was made along the femoral neck at the base of the head and a napkin ring of neck was removed. Corkscrew was placed in the femoral head and the head was removed without difficulty. Retractors were then repositioned around the acetabulum. Residual labrum was resected and additional osteophytes were removed. A reamer that was 4 mm below the templated size was placed by hand in the acetabulum and it was reamed to centralize the acetabulum. It was then reamed up to 2 under the templated size and fluoroscopy was brought in to confirm the position of the reaming and depth of reaming. I reamed 1 under the anticipated size. A trial cup was placed and noted that it was appropriately sized and fluoroscopy confirmed position and depth. The component was open and inserted without difficulty fluoroscopic imaging was used to confirm that the cup had been adequately seated and was well positioned. It was further stabilized with a single screw. Neutral poly liner was placed. The cup was tested and noted to be stable. Attention was then directed to the femur. The femur was gently hyperextended additional capsular release was performed as needed in order to allow adequate visualization of the proximal femur with elevation of the femur. Patient was placed in a hyperextended slightly adducted position with maximum external rotation. Box osteotome was used to check for any residual neck as well as sclerotic bone along the trochanter. [place] pepper was placed in the femur. Additional broaching was performed. Canal finder was used to determine the alignment of the canal and position. Size 1 broach was placed. The canal was then appropriately broached up to the templated size as long as there was adequate stability of the broach and serial advancement of the broach without excessive impingement. Specific attention was directed at avoiding varus attempting to direct the distal aspect of the broach more anteriorly and avoiding excessive anteversion. Trial reduction showed acceptable range of motion, good stability, no posterior impingement, zoroastrian of leg length and appropriate lateral shuck. I also hyperflexed the hip and checked that there was no impingement anteriorly and there was good stability with flexion, adduction and internal rotation. Marcaine and Exparel were injected. The stem was placed without difficulty. Repeat trial reduction and x-ray showed acceptable overall position, length, and no evidence of the femoral fracture. Final head was placed. Wound was meticulously irrigated with normal saline. The hip was reduced and additional Exparel and Marcaine were injected. The capsule was closed with interrupted nonabsorbable sutures. The fascia of the tensor was closed with interrupted and running Vicryl. No drain was placed. Any tensor fascia toshia muscle that appeared to be contused or injured which was a minimal amount was carefully resected. Capsule around the tensor was injected with Exparel and Marcaine. The skin was closed with barbed stitches for the subcutaneous tissue and skin. We also used surgical glue. The wound was dressed sterilely. Brief Betadine soak was also used and was meticulously irrigated with normal saline. Patient was transferred to recovery room in satisfactory condition. Complications: none Post-operative Condition: stable Disposition: Acute Care Plan for aftercare: The patient will be maintained on a standard total hip replacement protocol with weight bearing as tolerated and anterior hip precautions. The patient will receive Aspirin and sequential compression devices for DVT prophylaxis. The patient will be discharged home when safe for the home environment.
[2022-05-20] MEDS: ACETAMINOPHEN 325 MG TABLET 650 MG PO (19:02)
[2022-05-20] MEDS: IBUPROFEN 400 MG TABLET PO (19:03)
[2022-05-20] MEDS: LACTATED RINGERS 1,000 ML 125 ML IV (19:13)
[2022-05-20] MEDS: OXYCODONE IR 5 MG TABLET PO (19:23)
[2022-05-20] MEDS: OXYCODONE IR 5 MG TABLET 10 MG PO (21:52)
[2022-05-20] MEDS: ATORVASTATIN 20 MG TABLET 40 MG PO (21:52)
[2022-05-20] MEDS: AMITRIPTYLINE 25 MG TABLET PO (21:52)
[2022-05-20] MEDS: ASPIRIN EC 81 MG TABLET PO (21:53)
--- NOTE | 2022-05-20 23:02 | PC.NURSE ---
Addendum entered by Rob Merino R.N. 05/21/22 05:16: Pt ambulated to bedside commode, sat down to 70s w/ 3L NC, increased to mid 90s w deep breathing and rest. Pt now states pain is 'not too bad' 5/10 with movement. RN encouraged water and any food intake, pt declines at this time. Original Note: Pt received 5 oxy around 1900, still complaining of 10/10 pain to R knee, crying and shaking. Given 10 oxy around 2200 for pain. around 2300 pt had blue lips, sating in high 70s, RT placed 5L NC, now sating at 96%.
[2022-05-21] VITALS (8 sets, daily range): BP systolic 110–141; BP diastolic 49–59; PULSE 65–85; RESP 15–18; TEMP 36.2–36.9; O2SAT 93–100
[2022-05-21] MEDS: LACTATED RINGERS 1,000 ML 125 ML IV (03:50)
[2022-05-21] MEDS: CEFAZOLIN 2 GM/100 ML PREMIX 100 ML IV (06:13)
[2022-05-21 06:52] LABS: Hematocrit 37.6 % (36-46); Hemoglobin 13.1 g/dL (12.0-16.0)
[2022-05-21] MEDS: LEVOTHYROXINE 88 MCG TABLET PO (07:21)
[2022-05-21] MEDS: FISH OIL 1,000 MG CAPSULE 1000 MG PO (08:49)
[2022-05-21] MEDS: FENOFIBRATE, MICRONIZED 67 MG CAPSULE PO (08:49)
[2022-05-21] MEDS: lisinopriL 10 MG TABLET PO (08:50)
[2022-05-21] MEDS: TRAMADOL 50 MG TABLET PO ×2 (08:51→20:45)
[2022-05-21] MEDS: CHOLECALCIFEROL (VITAMIN D3) 400 UNIT TABLET 800 UNIT PO (08:51)
[2022-05-21] MEDS: DOCUSATE 100 MG CAPSULE PO ×2 (08:51→20:44)
[2022-05-21] MEDS: ASPIRIN EC 81 MG TABLET PO ×2 (08:51→20:44)
--- NOTE | 2022-05-21 09:20 | PT.IIE ---
Current Diagnoses Unilateral primary osteoarthritis, right hip (05/20/22) Surgery Performed Operation Date: 05/20/22 13:45 Actual Procedures p Total Hip Arthroplasty/Anterior Approach(Right) - Aleta Campos MD Surgical History (Last Reviewed 05/20/22 @ 12:02 by Emilee Ennis, REGINA) History of tonsillectomy Hx of colonoscopy Medical History (Last Reviewed 05/20/22 @ 12:02 by Emilee Ennis RN) Acquired hypothyroidism Essential hypertension Pelvis fracture (03/18/21) PMR (polymyalgia rheumatica) Physical Therapy Inpatient Evaluation/Re-Eval M1 PT/OT-IP Prior Functional Status Start: 05/21/22 11:09 Freq: NEEDED Status: Active Protocol: Document 05/21/22 09:20 AB (Rec: 05/21/22 11:21 AB [id number]) Medical Review Prior Functional Status Medical History Reviewed Yes Communication able to answer questions but with confusion Mobility and Gait pt stated that she is modified independent with all mobilities and ambulation using FWW Social History Household Members none Living Arrangements House Number of Floors (Floors) Two Floors Number of Stairs To Enter/Railing? pt stays on main level of the house 1 step to enter the house Home Environment Standard Height Toilet,Walk in Shower Home Equipment Front Wheel Walker,Straight Cane,Raised Toilet Seat w/ Armrests,Hand Held Shower,Grab Bars Near Toilet Additional Social History Comment pt stated that her daughter lives next door and if needed, can stay with her to assist her upon d/c M2 PT-IP Current Condition Start: 05/21/22 11:09 Freq: NEEDED Status: Active Protocol: Document 05/21/22 09:20 AB (Rec: 05/21/22 11:21 AB [id number]) Physical Therapy Current Condition Current Condition Evaluation Date 05/21/22 Treatment Diagnosis s/p R ROMULO anterior approach; difficulty in walking Onset Date 05/20/22 M3 PT-IP Subjective Start: 05/21/22 11:09 Freq: NEEDED Status: Active Protocol: Document 05/21/22 09:20 AB (Rec: 05/21/22 11:21 AB [id number]) Subjective Physical Therapy Visit Type Type Initial Evaluation Visit Start Time 09:20 Visit Stop Time 10:16 Total Visit Minutes 56 Number of TRAIN EXAMINER Visits 0 Physical Therapy Visit Comments Patient Comments agreeable to do PT Therapy Pain Assessment Pain When Pain Assessed At Rest Pain Present Pain Present Pain Reported Location left hip Scale Used unable to state scale Pain Behaviors Guarding,Holding Area,Wincing Pain Management Techniques Apply Cold,Distraction, Modification of Treatment,Re- positioning,Timing of Activity with Medications M4 PT-IP Mobility and Gait Start: 05/21/22 11:09 Freq: NEEDED Status: Active Protocol: Document 05/21/22 09:20 AB (Rec: 05/21/22 11:21 AB [id number]) PT-Bed Mobility Assessment Supine to Sit Supine to Sit Maximum Assistance,1 Person Assistance,2 Person Assistance ,Head of Bed Elevated,Bedrails Scooting Scooting to Edge of Bed Maximum Assistance PT-Transfer Assessment Sit to and From Stand Sit to and from Stand Maximum Assistance,2 Person Assistance,Use of Upper Extremities Equipment Transfer Assistive Device Gait Belt,Front Wheeled Walker Orthotic/Prosthetic Devices or Brace: No Transfers Transfer Destination Bedside Commode Transfer Technique Stand Step Pivot Transfer Ability Level of Assist Maximum Assistance,1 Person Assistance,2 Person Assistance ,Use of Upper Extremities Comments Mobility Comments educated pt on anterior hip precautions. pt with confusion and unable to recall and needs cues during mobility for precautions. pt completed supine to sit max A x 1-2 and max cues. able to sit on EOB min to mod A and max cues. max A x 1-2 for scooting to EOB. completed sit to stand max A x 2 and max cues. pt requested to use the toilet. NAC in room to assist as well. positioned bedside commode next to pt and pt completed step transfer to commode max A x 1-2 and max cues. completed sit to stand from bedside commode max A x 2 and max cues and required max A for standing balance using FWW to assist while NAC assisted pt with hygiene care and brief management. pt completed step transfer to chair using FWW max A x 1-2 and max cues. (+) R knee buckling and cues for quads contraction. (+) L knee crepitus. Gait Assessment Comments Gait Comments able to take steps during transfers only using FWW PT-Balance Assessment Sitting Balance and Reactions Static Sitting Balance Ability Good Dynamic Sitting Balance Ability Fair Standing Balance and Reactions Static Standing Balance Ability Poor Dynamic Standing Balance Ability Poor Device Used FWW M5 PT-IP Objective Assessments Start: 05/21/22 11:09 Freq: NEEDED Status: Active Protocol: Document 05/21/22 09:20 AB (Rec: 05/21/22 11:21 AB [id number]) Orientation Orientation/Cognition Level of Alertness Confusional State Orientation Name Language Function Ability Hard of Hearing Safety Awareness Decreased Safety Awareness Memory Description Short Term Impaired Strength Lower Extremity Strength Assessment Bilaterally Impaired Hip 3+/5 Knee 3+/5 Sensation Assessment Sensation Gross Sensation WNL Muscle Tone Muscle Tone WNL Yes M6 PT-IP Treatment Start: 05/21/22 11:09 Freq: NEEDED Status: Active Protocol: Document 05/21/22 09:20 AB (Rec: 05/21/22 11:21 AB [id number]) Physical Therapy Treatment Education Education Provided Precautions,Weight Bearing Status,Post-Op Packet,Safety M7 PT-IP Assessment and Plan Start: 05/21/22 11:09 Freq: NEEDED Status: Active Protocol: Document 05/21/22 09:20 AB (Rec: 05/21/22 11:21 AB [email or web address]) PT Summary Assessment and Plan Potential Rehabilitation Potential Fair Status of Condition at Evaluation Evolving Summary Impairments Pain,ROM,Strength,Balance, Coordination,Sensation,Tone, Cognition,Bed Mobility, Transfers,Gait,Activity Tolerance Assessment Summary pt requiring max A x 1-2 with mobility and unable to ambulate at this time. Pt will require SNF rehab at this time. informed pt regarding SNF but pt refuse. informed pt regarding safety d/c and 2 PA for safe d/c home and equipement needs. will continue to assess progress. Goals Bed Mobility Goal Standby Assistance Transfer Goal Standby Assistance,Front Wheeled Walker Gait Goal Standby Assistance,Front Wheel Walker Gait Distance 100 Other Goals up/down 1 step using fWW CGA Days to Meet Goals 10 Frequency of Treatment Frequency Of Treatment Twice a Day Treatment Plan Physical Therapy Treatment Plan Bed Mobility Training,Transfer Training,Gait Training, Therapeutic Exercise,Balance Retraining,Post Op Education, Discharge Planning,Hot or Cold Pack,Neuromuscular Re-ed, Coordination Retraining,Manual Therapy Precautions Anterior Hip Precautions No Hip Extension,No Hip External Rotation Weight Bearing Status Weight Bearing Status Weight Bear as Tolerated Allowed Weight Bearing Amount (enter % RLE WBAT or #) (%) Recommendations To Nursing Amount of Assist Needed 2 Person Assist Discharge Recommendations PT Discharge Recommendations Home with 19/01 Assist Available,Home Health,SNF Rehab,Home vs SNF Transportation Needs at Discharge Wheelchair/Cabulance
[2022-05-21] MEDS: ACETAMINOPHEN 325 MG TABLET 650 MG PO ×3 (11:44→23:36)
[2022-05-21] MEDS: IBUPROFEN 400 MG TABLET PO ×3 (11:45→23:37)
--- NOTE | 2022-05-21 12:01 | CM.DANOTE ---
Addendum entered by Bianca Cisneros R.N. 05/21/22 15:35: Kassidy, physical therapist feels that patient will need group home, was a two person transfer. Had previously spoken to daughter, Hugo, and patient, and did not want to go. Met again with patient's daughter, Hugo. She is aware that patient could improve by tomorrow for discharge, but not sure as of yet. Brought in Medicare Choice List and Ipad, and let her know that there are some facilities that do take the COVID waiver if needed. Went over the list, let her know that [facility] does not take COVID waivers, daughter did not want her to go there anyway, she was there before for a month. Also, let her know that [facility] is full, but [facility] and [facility] may have openings. Daughter and patient would go to [facility] as last resort, but would not want to stay long. Daughter is hoping that she can stay until Thursday, but let her know that this is an [facility] surgery, which she would switch over to OBS, but can't guarantee payment from insurance after that. Daughter wants to know how much it would cost for her to stay in the hospital for a couple of days, let her know, can't quote prices on hospital stays. Encouraged her and patient to see if she improves tomorrow for home, possibly home health. Did have Lakisha send referrals to [facility] and [facility]. Spoke to Kendra at [facility], may potentially have openings on Thursday, they have no admission nurse tomorrow. [facility], maybe not until the weekend or Thursday. Will see how patient does tomorrow, if she improves, she can go home with home health. Otherwise, would not be able to get her into skilled until Thursday. Addendum entered by Bianca Cisneros R.N. 05/21/22 13:35: Spoke to patient, does not want to go to group home. Met patient's daughter, Hugo, stated, she feels she can manage at home. Have not yet seen ortho today. Original Note: DCP: Case received, EMR reviewed and met with patient. Introduced self and role. Was able to obtain information regarding patient's baseline activity level at home prior to hospitalization, as well as her current living situation. DCP assessment completed with information currently available. Patient is an 87 year old female who admitted yesterday morning to the care of the orthopedic team. PCP: Dr. Lugo. Payer: confirmed: Medicare/[facility]. Patient came to the hospital via private vehicle for a surgical procedure. Patient had right total hip arthroplasty, anterior approach. Patient has history of arthritis. Met with patient in her room. She was sitting up in bed having her breakfast, prior, had been on the phone with daughter. Patient is alert and oriented, and resides on [address] alone, is a . Her daughter, Hugo, resides next door. At patient's baseline, she uses a FWW, and does not drive. Daughter takes patient to her appointments. Patient also indicated that her daughter will be assisting her when she goes home. She is currently going to outpatient P.T, for hip pain, and would like to continue with this. 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 P: DCP to continue follow. Plan is home when stable, may see if patient is interested in home health, as she was a two person assist with P.T. Bianca Cisneros RN/Flowers Salesperson Discharge Planning/Care Management CM Discharge Assessment Start: 05/21/22 11:59 Freq: Status: Active Protocol: Document 05/21/22 12:00 (Rec: 05/21/22 12:01 [id number]) Discharge Planning Assessment Assigned Bookkeeping Service Sales Agent Bianca Cisneros RN/Flowers Salesperson Advance Directives? Yes Advance Directives on File No History Provided By Patient,Medical Record Prior Living Arrangements House Household Members none Type of transporation used prior to Relies on Others admit DME Already Rented / Owned FWW / Walker Patient/Family Preference OP PT Therapy Discharge Plan Home Referrals Initiated Other Additional Comment Will see how patient does with therapy Whiteboard Updated in Patient Room with Yes name and ext. # of Bookkeeping Service Sales Agent Review Status In Process Next Review Type Continued Stay Review Pre-Anesthesia Assessment Start: 05/12/22 13:03 Freq: Status: Active Protocol: Document 05/12/22 13:03 CAB (Rec: 05/12/22 13:52 CAB [id number]) Pre-Anesthesia Assessment Preferred Name Jia Patient Information Reviewed Via Phone Assessment Assessment Completed With Patient Diagnostic Results BMP/CMP,CBC,EKG,Urinalysis Comment Labs/ECG done on John, not here, COVID screen-RAPID on admit Primary Care Provider Brenda Lugo Seen Specialist in Last 12 Months Yes Specialist Seen Orthopedist Primary Language Slovenian Preferred Language Slovenian Strategic Marketing Specialist Required No Height 5 ft 5 in Weight 160 lb Body Mass Index (BMI) 26.6 Hearing Ability Normal Visual Assist Glasses Dentition Type Teeth, Natural Present Barriers to Learning None Hx Anesthesia Reactions No Hx Family Anesthesia Reaction No Hx Malignant Hyperthermia No Hx Blood Transfusions No Anesthesia Review Requested No Rn Telephone Triage No alcohol intake current alcohol intake frequency 0-2 drinks per day Smoking Status Never smoker Substance Use Type does not use Pain Present Pain Reported Musculoskeletal Symptoms Abnormal Gait,Difficulty Walking,Joint Pain History of Falling (Recent or History of Yes ) Patient is completely paralyzed or No completely immobile Prosthesis or Orthotic Device Front Wheel Walker Mental Status Oriented to own ability Is patient on oxygen? No Does patient have ADAIR/SOB No Hx Sleep Apnea No Currently Taking a Beta James No Hx Chest Pain No Hx SOB No Hx Syncope or Dizziness No Anti-Coagulant Therapy No Has a Model Artists' No Cardiac Testing No Hx Pacemaker/ICD No Pacemaker Rep Required? No Cardiac Clearance Received Not Applicable Diet Type At Home Regular Dysphagia No Gastrointestinal Symptoms Constipation,Reflux Chronic UTI Current UTI, under abx will be done by dos Urinary Catheter Present No Hx Urinary Self Catheterization No Diabetes No Patient No Lactating No Hx Drug Resistant Organism No Presence of External or Internal Medical No Devices Have you had any close contact with No someone diagnosed with COVID-19? Received a COVID vaccine? Yes Received all doses? No Marital Status / Lives With none Current Living Arrangements House Number of Floors (Floors) Two Floors Support System Child/Children Does the Patient Have Assistance After Yes: Daughter will be with pt Surgery to assist with care at [place] Patient Discharge Plan Description Return Home Comment Pt not advised on length of stay per surgeon Feels Safe in Current Environment Yes Been Physically Hurt or Threatened By a No Person in Current Environment Do you have thoughts of harming yourself None or others? Are you currently considering suicide? No Do you have a plan to hurt yourself or No Plan others? Do You Have Any Spiritual Beliefs That No May Affect Your HC Choices? Do You Have Any Cultural Practices That No May Affect Your HC Choices? Who Can We Speak to About Patient's Care Family, friends Identifying Code for Release of Patient Declines to issue Information Health Care Proxy/Next of Kin Hugo Campos (daughter) Health Care Proxy , ( cell) Emergency Contact Name Hugo Campos Emergency Contact , ( cell) Advance Directives? Yes Advance Directives on File No Power of Cash Applications Representative Yes PAC Instructions Do not shave/clip surgical site,Durable medical equipment ,Medications to take/avoid, Nasal antibiotic,No ETOH/ petroleum product on skin DOS, NPO,Post-op transportation,Pre -surgical wash,Sturdy shoes/ comfortable clothes,Do not bring valuables and remove jewelry
--- NOTE | 2022-05-21 14:00 | PT.IPTN ---
Current Diagnoses Unilateral primary osteoarthritis, right hip (05/21/22) Surgery Performed Operation Date: 05/20/22 13:45 Actual Procedures p Total Hip Arthroplasty/Anterior Approach(Right) - Aleta Campos MD Physical Therapy Treatment Note M2 PT-IP Current Condition Start: 05/21/22 11:09 Freq: NEEDED Status: Active Protocol: Document 05/21/22 09:20 AB (Rec: 05/21/22 11:21 AB [id number]) Physical Therapy Current Condition Current Condition Evaluation Date 05/21/22 Treatment Diagnosis s/p R ROMULO anterior approach; difficulty in walking Onset Date 05/20/22 M3 PT-IP Subjective Start: 05/21/22 11:09 Freq: NEEDED Status: Active Protocol: Document 05/21/22 14:00 AB (Rec: 05/21/22 17:51 AB [email or web address]) Subjective Physical Therapy Visit Type Type Treatment Note Visit Start Time 14:00 Visit Stop Time 14:38 Total Visit Minutes 38 Number of QUALITY ASSURANCE TESTER Visits 0 Physical Therapy Visit Comments Patient Comments pt agreed to do PT; requested to go back to bed after PT Therapy Pain Assessment Pain When Pain Assessed At Rest Pain Present Pain Present Pain Reported Location left hip Scale Used pain scale not stated; increases with mobility Pain Management Techniques Apply Cold,Modification of Treatment,Re-positioning, Timing of Activity with Medications M4 PT-IP Mobility and Gait Start: 05/21/22 11:09 Freq: NEEDED Status: Active Protocol: Document 05/21/22 14:00 AB (Rec: 05/21/22 17:51 AB [email or web address]) PT-Bed Mobility Assessment Sit to Supine Sit to Supine Maximum Assistance,1 Person Assistance,Head of Bed Elevated PT-Transfer Assessment Sit to and From Stand Sit to and from Stand Maximum Assistance,1 Person Assistance,Use of Upper Extremities Equipment Transfer Assistive Device Front Wheeled Walker Orthotic/Prosthetic Devices or Brace: No Transfers Transfer Destination Bed Transfer Technique ambulated Transfer Ability Level of Assist Maximum Assistance,1 Person Assistance,Use of Upper Extremities Comments Mobility Comments pt sitting on chair. daughter in room. informed daughter regarding pt's mobility and d/ c recommendation from this morning's PT eval. pt and daugther refusing SNF rehab. reviewed hip precautions with pt and educated daughter regarding pt's precautions. pt continues to require cues for hip precautions. pt completed sit to stand x 3 attempts to be able to stand from the chair max A and max cues needed. ambulated ~ 10 ft using fWW max A and max cues and has to sit on EOB. presents with stooped posture, increase R knee flexion during walking despite cues of WBAT, has decrease LE elevation and step length. pt completed sit to supine max A and max cues. completed LE exercises in bed: ankle pumps, quads sets and glute sets. positioned pt in bed. informed daughter daughter regarding regarding SNF rehab and now agreeable to SNF and want to talk to immigration case worker. informed immigration case worker. Gait Assessment Gait Gait Assistance Required: Maximum Assistance Distance (Feet) 10 Able to Maintain Weight Bearing Status Yes During Gait Assistive Devices Assistive Device Gait Belt,Front Wheeled Walker Orthotic/Prosthetic Devices or Brace: No Gait Deviations General Gait Pattern Antalgic,Decreased Stride Length,Decreased Feet Clearance,Flexed Trunk,Step-to Gait Factors Limiting Gait Function Factors Limiting Gait Function Decreased Activity Tolerance, Decreased Strength,Difficulty Following Directions,Limited Range of Motion,Pain,Poor Balance,Poor Safety Awareness M5 PT-IP Objective Assessments Start: 05/21/22 11:09 Freq: NEEDED Status: Active Protocol: Document 05/21/22 09:20 AB (Rec: 05/21/22 11:21 AB [email or web address]) Orientation Orientation/Cognition Level of Alertness Confusional State Orientation Name Language Function Ability Hard of Hearing Safety Awareness Decreased Safety Awareness Memory Description Short Term Impaired Strength Lower Extremity Strength Assessment Bilaterally Impaired Hip 3+/5 Knee 3+/5 Sensation Assessment Sensation Gross Sensation WNL Muscle Tone Muscle Tone WNL Yes M6 PT-IP Treatment Start: 05/21/22 11:09 Freq: NEEDED Status: Active Protocol: Document 05/21/22 14:00 AB (Rec: 05/21/22 17:51 AB [email or web address]) Physical Therapy Treatment Education Education Provided Precautions,Safety M7 PT-IP Assessment and Plan Start: 05/21/22 11:09 Freq: NEEDED Status: Active Protocol: Document 05/21/22 14:00 AB (Rec: 05/21/22 17:51 AB [email or web address]) PT Summary Assessment and Plan Potential Rehabilitation Potential Fair Summary Impairments Pain,ROM,Strength,Balance, Coordination,Sensation,Tone, Cognition,Bed Mobility, Transfers,Gait,Activity Tolerance Progress Towards Goals Slow Progress due to Pain,Slow Progress due to Activity Tolerance Assessment Summary pt requiring max A with mobility using FWW and unable to ambulate much due to c/o pain. will continue to assess progress and when appropriate , conduct caregiver training. At this time, pt will require SNF rehab. Goals Bed Mobility Goal Standby Assistance Transfer Goal Standby Assistance,Front Wheeled Walker Gait Goal Standby Assistance,Front Wheel Walker Gait Distance 100 Other Goals up/down 1 step using fWW CGA Days to Meet Goals 10 Frequency of Treatment Frequency Of Treatment Twice a Day Treatment Plan Physical Therapy Treatment Plan Bed Mobility Training,Transfer Training,Gait Training, Therapeutic Exercise,Balance Retraining,Post Op Education, Discharge Planning,Hot or Cold Pack,Neuromuscular Re-ed, Coordination Retraining,Manual Therapy Precautions Anterior Hip Precautions No Hip Extension,No Hip External Rotation Weight Bearing Status Weight Bearing Status Weight Bear as Tolerated Allowed Weight Bearing Amount (enter % RLE WBAT or #) (%) Recommendations To Nursing Amount of Assist Needed 2 Person Assist Discharge Recommendations PT Discharge Recommendations Home with 19/01 Assist Available,Home Health,SNF Rehab,Home vs SNF Transportation Needs at Discharge Wheelchair/Cabulance
--- NOTE | 2022-05-21 14:39 | P.PN_ITS ---
Subjective Subjective Date Patient Seen: 05/21/22 Time Patient Seen: 14:40 Interval history: Patient states her pain is been moderate to severe. Denies fever chills. No shortness of breath or chest pain. No nausea vomiting. Patient lives alone however daughter lives right next door. Exam Vital Signs (past 8 hours): - 05/21/22 08:50 05/21/22 08:30 05/21/22 11:58 Temperature 97.7 F 98.5 F Pulse Rate 67 79 Respiratory Rate 18 18 Blood Pressure 140/57 L 140/57 L 138/59 L Pulse Oximetry 100 97 Oxygen Flow Rate 2 Oxygen Delivery Method Nasal Cannula Oxygen Flow Rate 2 Narrative Exam Narrative: 87-year-old female resting comfortably in bed, no apparent distress. Hip dres sing is clean, dry and intact. Motor functions intact bilateral lower extremities. Sensation grossly intact to light touch bilateral lower extremities. Const General: cooperative and comfortable Nutritional Appearance: average body habitus Orientation: alert Resp Effort & Inspection: normal respiratory effort and able to speak in complete sentences Objective Labs Result Diagrams: 05/21/22 06:23 Labs: Laboratory Results - last 24 hr 05/21/22 06:23 Hgb 13.1 Hct 37.6 PFSH Medical History Acquired hypothyroidism Essential hypertension Pelvis fracture (03/18/21) PMR (polymyalgia rheumatica) Surgical History History of tonsillectomy Hx of colonoscopy Family History Father Emphysema lung Sister No problems noted. Social History household members: none Smoking Status: Never smoker alcohol intake: current Assessment & Plan Post-op Postoperative Procedures: Procedures Operation Date: 05/20/22 13:45 Actual Procedure Side Surgeon p Total Hip Arthroplasty/Anterior Approach Right Aleta Campos MD Postoperative day: 1 Postoperative status: marginal pain control Postoperative status narrative: Stable status post right total hip arthroplasty, anterior approach Postoperative plan narrative: Mobilize with physical therapy, anterior hip precautions Multimodal pain management Aspirin and SCDs for DVT prophylaxis Disposition possibly home tomorrow as she was 2 person assist today. Quality VTE Deep Vein Thrombosis/Pulmonary Embolism Present on Admission: No
--- NOTE | 2022-05-21 18:21 | PC.NURSE ---
Pt up to chair with SBA - did very well-steady on her feet with small amount of cueing required. Pain well managed with Tylenol and Ibuprofen. Pt agrees to call for assistance as needed.
[2022-05-21] MEDS: SENNOSIDES 8.6 MG TABLET 17.2 MG PO (20:44)
[2022-05-21] MEDS: AMITRIPTYLINE 25 MG TABLET PO (20:44)
[2022-05-21] MEDS: ATORVASTATIN 20 MG TABLET 40 MG PO (20:44)
[2022-05-22] VITALS (7 sets, daily range): BP systolic 128–150; BP diastolic 56–61; PULSE 67–82; RESP 16–18; TEMP 36.1–36.6; O2SAT 94–99
[2022-05-22] MEDS: IBUPROFEN 400 MG TABLET PO ×2 (05:01→11:46)
[2022-05-22] MEDS: ACETAMINOPHEN 325 MG TABLET 650 MG PO ×2 (05:02→11:46)
[2022-05-22] MEDS: LEVOTHYROXINE 88 MCG TABLET PO (07:41)
--- NOTE | 2022-05-22 09:08 | CM.DPC ---
Addendum entered by Bianca Cisneros R.N. 05/22/22 13:11: Patient did improve with P.T, did need assist of one. Patient should be able to go home. She will work with P.T. today, if not home today, will need to go home tomorrow and take priority boarding for seymour. Addendum entered by Bianca Cisneros R.N. 05/22/22 12:01: Patient is sitting in chair, alert today. Myrtle MirandaT. will be working with patient. It is unclear if she can go home today. Patient indicated, she thought that the was not going home today, so she told her daughter not to come. Did let patient know that this DC Collision Estimator had conversation with her and daughter yesterday, that if she improves, could possibly go home today. Will have to see how she does with P.T. today. Original Note: DCP Cont: Kendra from [facility] left a message indicating that she can accept patient, but not until Thursday, and that patient would be appropriate for the [facility] waiver. [facility], not until Thursday. Will see how patient does with P.T. today for possible home with home health. P: DCP to continue to follow closely. Patient may be able to go home if she improves, with home health, versus outpatient P.T, back up is [facility], but not until Thursday. Bianca Cisneros RN/Medical Records Coordinator
[2022-05-22] MEDS: FENOFIBRATE, MICRONIZED 67 MG CAPSULE PO (09:16)
[2022-05-22] MEDS: ASPIRIN EC 81 MG TABLET PO ×2 (09:17→21:17)
[2022-05-22] MEDS: lisinopriL 10 MG TABLET PO (09:17)
[2022-05-22] MEDS: FISH OIL 1,000 MG CAPSULE 1000 MG PO (09:17)
[2022-05-22] MEDS: DOCUSATE 100 MG CAPSULE PO ×2 (09:17→21:17)
[2022-05-22] MEDS: CHOLECALCIFEROL (VITAMIN D3) 400 UNIT TABLET 800 UNIT PO (09:17)
--- NOTE | 2022-05-22 10:03 | P.PN_ITS ---
Subjective Subjective Date Patient Seen: 05/22/22 Time Patient Seen: 10:03 Interval history: Postop day 3 right total hip anterior approach. Marginal pain control. Lying in bed this morning quite lethargic. Was a 2 person assist with PT yesterday and was recommended for residential. Possibly home health if she does better today Exam Vital Signs (past 8 hours): - 05/22/22 05:03 05/22/22 07:54 05/22/22 09:17 Temperature 97.8 F 97.7 F Pulse Rate 76 67 69 Respiratory Rate 18 18 Blood Pressure 128/58 L 137/56 L 137/56 L Pulse Oximetry 94 96 Oxygen Delivery Method Oxygen Flow Rate 0 05/22/22 09:25 Temperature Pulse Rate Respiratory Rate 16 Blood Pressure Pulse Oximetry 99 Oxygen Delivery Method Room Air Oxygen Flow Rate Oxygen Delivery Method Room Air Oxygen Flow Rate 0 Narrative Exam Narrative: HEENT exam normocephalic atraumatic general exam alert oriented no acute distress lying in bed Dressing clean dry intact at right anterior hip. Demonstrates dorsiflexion plantar flexion. Thigh and calf soft. Palpable dorsalis pedis pulses. Sensation grossly intact Objective Labs Result Diagrams: 05/21/22 06:23 [facility] Medical History Acquired hypothyroidism Essential hypertension Pelvis fracture (03/18/21) PMR (polymyalgia rheumatica) Surgical History History of tonsillectomy Hx of colonoscopy Family History Father Emphysema lung Sister No problems noted. Social History household members: none Smoking Status: Never smoker alcohol intake: current Assessment & Plan Post-op Postoperative Procedures: Procedures Operation Date: 05/20/22 13:45 Actual Procedure Side Surgeon p Total Hip Arthroplasty/Anterior Approach Right Aleta Campos MD Postoperative day: 2 Postoperative status: marginal pain control Postoperative status narrative: Postoperative to right total hip replacement, anterior approach. Regional pain control has needed a 2 person assist with physical therapy. Will work with them again today. If need skilled discharge no beds available until Thursday. Postoperative plan: routine post-op care Postoperative plan narrative: Continue to work with therapy. If does better with therapy today and okay for home health with PT possible discharge today versus likely residential discharge on Thursday. Weightbear as tolerated. Anterior hip precautions Aspirin 81 mg b.i.d. for DVT prophylaxis At discharge follow up in 2 weeks with Catalina Ochoa Orthopedic surgery Time Spent With Patient Time with patient: less than 15 minutes Quality VTE Deep Vein Thrombosis/Pulmonary Embolism Present on Admission: No
--- NOTE | 2022-05-22 10:26 | PM.DS.1 ---
History of Present Illness History of Present Illness Date Patient Seen: 05/23/22 Time Patient Seen: 10:26 Chief complaint: Right ROMULO anterior Narrative: Patient is an 81-year-old female with end-stage right hip arthritis. She is failed conservative treatments and was indicated for right total hip arthroplasty. She had surgery on 05/20/[address] Campos. Discharge Providers Provider Date of admission: 05/21/22 12:23 Discharge Date: 05/22/22 Primary care physician: Elo Lugo MD Consults: 05/20/22 06:00 Consult to Anesthesiology Routine Comment: Consulting Provider: Anesthesiologist Reason for consultation: Regional block for post operative pain control 05/20/22 18:13 Consult to Discharge Planning Routine Comment: Consult to Physical Therapy Evaluate & Treat Comment: Physician Instructions: post op ROMULO protocol Discharge provider: Elo Garcia MD Summary Hospital Course Discharge Diagnosis: Right hip arthritis Hospital Course: The patient was admitted to the floor postoperative from a right total hip arthroplasty. She initially marginal control of her pain on the floor. This was modulated with a multimodal pain regimen. She worked with Physical therapy and was a maximal to person assist and was recommended for alf. A alf facility acceptance was not available until postoperative day 4. She continued to work with the physical therapy did show some improvement. She improved with therapy on 05/22/2022 was okay for with 1 assist. At due to the holiday discharge was set up for 05/23/2022. And was appropriate for discharge to home on 05/23/2022 Status at Discharge Cognitive/behavioral status at discharge: oriented Functional status at discharge: uses cane/walker Overall status at discharge: patient is progressing back to baseline Time Spent with Patient Time spent: Less than 30 minutes Exam Vital Signs (past 8 hours): - 05/22/22 05:03 05/22/22 07:54 05/22/22 09:17 Temperature 97.8 F 97.7 F Pulse Rate 76 67 69 Respiratory Rate 18 18 Blood Pressure 128/58 L 137/56 L 137/56 L Pulse Oximetry 94 96 Oxygen Delivery Method Oxygen Flow Rate 0 05/22/22 09:25 Temperature Pulse Rate Respiratory Rate 16 Blood Pressure Pulse Oximetry 99 Oxygen Delivery Method Room Air Oxygen Flow Rate Oxygen Delivery Method Room Air Oxygen Flow Rate 0 Narrative Exam Narrative: Alert and oriented female in no acute distress. HEENT exam normocephalic atraumatic. Respiratory rate unlabored on room air. Vital signs stable. Demonstrates dorsiflexion plantar flexion bilateral lower extremities. Right lower extremity dressing on the hip clean dry and intact. Thigh and calf soft. Const General: cooperative Objective Labs Result Diagrams: 05/21/22 06:23 [facility] Medical History Acquired hypothyroidism Essential hypertension Pelvis fracture (03/18/21) PMR (polymyalgia rheumatica) Surgical History History of tonsillectomy Hx of colonoscopy Family History Father Emphysema lung Sister No problems noted. Social History household members: none Smoking Status: Never smoker alcohol intake: current Discharge Assessment & Plan Assessment and Plan Assessment: Status post right total hip arthroplasty. Anterior approach with Dr. Campos Plan of Treatment: Discharge when appropriate Pain control with Tylenol, ibuprofen, low-dose oxycodone. Aspirin 81 mg b.i.d. for DVT prophylaxis x6 weeks Discharge Plan Discharge Plan Patient Disposition: Home Discharge orders & Medications Prescriptions: New acetaminophen 325 mg Tablet 650 mg PO Q6HR Qty: 60 0RF aspirin 81 mg Tablet,Delayed Release (Dr/Ec) 81 mg PO BID Qty: 84 0RF ibuprofen 400 mg Tablet 400 mg PO Q6HR Qty: 60 0RF docusate sodium 100 mg Capsule 100 mg PO BID Qty: 30 0RF ondansetron 4 mg Tablet,Disintegrating 4 mg PO Q8HR PRN (Reason: nausea) Qty: 5 1RF oxycodone 5 mg Tablet 5 mg PO Q4HR PRN (Reason: pain) Qty: 40 0RF Continued Fish Oil 1,000 mg PO BID Qty: 0 CHOLECALCIFEROL (VITAMIN D3) (Vitamin D3) 800 unit PO QDAY Qty: 0 [coenzyme Q10] 200 mg OR QDAY Qty: 30 0RF metronidazole [MetroCream] 0.75 % cream 1 jonel Topical SEE INSTRUCTIONS Qty: 45 2RF amitriptyline 25 mg tablet 25 mg PO BEDTIME Label Comments: TAKE ONE(1) TABLET BY MOUTH ONCE DAILY AT BEDTIME polyethylene glycol 3350 17 gram Powder In Packet 17 gm PO DAILY PRN (Reason: Constipation) Qty: 30 0RF sennosides [senna] 8.6 mg Tablet 17.2 mg PO BEDTIME Qty: 30 0RF fenofibrate nanocrystallized 48 mg Tablet 48 mg PO DAILY levothyroxine 100 MCG tablet 88 mcg PO Q DAY lisinopril 10 MG tablet 10 mg PO DAILY atorvastatin 40 mg Tablet 40 mg PO BEDTIME Discontinued aspirin 81 MG tablet,chewable 81 mg PO QDAY Qty: 0 oxycodone 5 mg Tablet 10 mg PO Q3HR PRN (Reason: Pain, Severe (7-10)) Qty: 30 0RF oxycodone 5 mg Tablet 5 mg PO Q3HR PRN (Reason: Pain, Moderate (4-6)) Qty: 30 0RF Follow up/Referrals: Elo Lugo MD [Primary Care Provider] - Aleta Campos MD [Physician] - (Two weeks) Diet/Activity/Treatments Diet: Diet as Tolerated Activity: Weight-bearing as tolerated, anterior hip precautions Cold/Heat Therapy: Ice as needed Skin/Wound/Dressing Care Report to your healthcare provider any signs of infection, such as:: chills, fever, increased pain, unusual drainage and unusual redness Dressing: Keep dressing clean and dry Visit Report/Discharge Packet Instructions: DI for Hip Replacement Stand Alone Forms: Surgery Discharge Discharge Data Primary Care Provider: Elo Lugo Attending Provider: Aleta Campos Quality VTE Deep Vein Thrombosis/Pulmonary Embolism Present on Admission: No
--- NOTE | 2022-05-22 12:22 | PT.IPTN ---
Current Diagnoses Unilateral primary osteoarthritis, right hip (05/21/22) Surgery Performed Operation Date: 05/20/22 13:45 Actual Procedures p Total Hip Arthroplasty/Anterior Approach(Right) - Aleta Campos MD Physical Therapy Treatment Note M2 PT-IP Current Condition Start: 05/21/22 11:09 Freq: NEEDED Status: Active Protocol: Document 05/22/22 11:47 SP (Rec: 05/22/22 16:45 SP [id number]) Physical Therapy Current Condition Current Condition Evaluation Date 05/21/22 Treatment Diagnosis s/p R ROMULO anterior approach; difficulty in walking Onset Date 05/20/22 M3 PT-IP Subjective Start: 05/21/22 11:09 Freq: NEEDED Status: Active Protocol: Document 05/22/22 11:47 SP (Rec: 05/22/22 16:45 SP [id number]) Subjective Physical Therapy Visit Type Type Treatment Note Visit Start Time 11:47 Visit Stop Time 12:22 Total Visit Minutes 35 Notes Vitals: Seated in chair: BP 132/55 SaO97% on RA Number of TECHNOLOGIST DEVELOPMENT Visits 1 Physical Therapy Visit Comments Patient Comments Pt agreeable to working with therapy. Patient Goals Return home with daughter to assist her when needed, lives nearby. Is already set up for outpt therapy next week. Therapy Pain Assessment Pain When Pain Assessed During Mobility Pain Present Pain Present Denied Pain Location left hip Scale Used pain scale not stated; increases with mobility Description Tender,With Movement Pain Management Techniques Re-positioning,Timing of Activity with Medications M4 PT-IP Mobility and Gait Start: 05/21/22 11:09 Freq: NEEDED Status: Active Protocol: Document 05/22/22 11:47 SP (Rec: 05/22/22 16:45 SP [id number]) PT-Transfer Assessment Sit to and From Stand Sit to and from Stand Contact Guard Assistance, Minimal Assistance,1 Person Assistance,Use of Upper Extremities Equipment Transfer Assistive Device Gait Belt,Front Wheeled Walker Orthotic/Prosthetic Devices or Brace: No Transfers Transfer Destination Chair Transfer Technique ambulate w/ FWW Transfer Ability Level of Assist Contact Guard Assistance,Use of Upper Extremities Comments Mobility Comments Pt upright in chair performing LAQs when arrived, reports no pain, states little awareness knee not normal during mobility. Sit>stand, cues for pushing from chair arms not FWW, CG/Min A. Gait across room and back approx 30 ft w/ FWW CG/Min A, good self corrections for maintaining no RLE extension or ER precautions with added verbalizations. Pt returned to chair, cues for back fully and centering, then reaching back to descent tends to sit holding FWW, SBA. Pt completed further 20 ft gait, including ascend 1 PF step w/ FWW, Min/ Mod A for trunk support cued for ascend leading LLE, contact support safety FWW positioning. Pt returned to chair with call light and all needs in reach before left. TECHNOLOGIST DEVELOPMENT educated recommending pm tx, CGT with daughter for support during tx. Gait Assessment Gait Gait Assistance Required: Contact Guard Assist,Minimum Assistance,1 Person Assist Distance (Feet) 30 Able to Maintain Weight Bearing Status Yes During Gait Assistive Devices Assistive Device Gait Belt,Front Wheeled Walker Orthotic/Prosthetic Devices or Brace: No Gait Deviations General Gait Pattern Antalgic,Decreased Stride Length,Decreased Feet Clearance,Flexed Trunk,Step-to Gait Factors Limiting Gait Function Factors Limiting Gait Function Decreased Activity Tolerance, Decreased Strength,Difficulty Following Directions,Limited Range of Motion,Pain,Poor Balance,Poor Safety Awareness Comments Gait Comments good demonstration and self corrections maintaining step to patterning leading RLE and small step pivots w/FWW during turns. Stair Climbing Assessment Evaluation Level of Assist On Stairs Minimal Assistance,Moderate Assistance,1 Person Assistance Devices Stair Climbing Assistive Devices Front Wheel Walker Technique/Endurance Stair Climbing Direction Ascend and Descend Stair Climbing Technique Step to Step Number of Steps Climbed 1 Stair Climbing Set # Repetitions (reps) 1 Comments Stair Climbing Comments Completed 1 PF step has at home w/ FWW, Min/Mod A trunk support to ascend step, cues for patterning and FWW safety positioning as needed. PT-Balance Assessment Sitting Balance and Reactions Static Sitting Balance Ability Normal Dynamic Sitting Balance Ability Good Standing Balance and Reactions Static Standing Balance Ability Good Dynamic Standing Balance Ability Fair Device Used FWW M5 PT-IP Objective Assessments Start: 05/21/22 11:09 Freq: NEEDED Status: Active Protocol: Document 05/21/22 09:20 AB (Rec: 05/21/22 11:21 AB [id number]) Orientation Orientation/Cognition Level of Alertness Confusional State Orientation Name Language Function Ability Hard of Hearing Safety Awareness Decreased Safety Awareness Memory Description Short Term Impaired Strength Lower Extremity Strength Assessment Bilaterally Impaired Hip 3+/5 Knee 3+/5 Sensation Assessment Sensation Gross Sensation WNL Muscle Tone Muscle Tone WNL Yes M6 PT-IP Treatment Start: 05/21/22 11:09 Freq: NEEDED Status: Active Protocol: Document 05/22/22 11:47 SP (Rec: 05/22/22 16:45 SP [id number]) Physical Therapy Treatment Exercises Exercises Ankle Pumps,Gluteal Sets,Quad Sets,Seated Knee Flexion/ Extension Knee ROM Measurement R knee 90 deg sitting in chair Education Education Provided Precautions,Post-Op Packet, Safety M7 PT-IP Assessment and Plan Start: 05/21/22 11:09 Freq: NEEDED Status: Active Protocol: Document 05/22/22 11:47 SP (Rec: 05/22/22 16:45 SP [id number]) PT Summary Assessment and Plan Potential Rehabilitation Potential Fair Status of Condition at Evaluation Evolving Summary Impairments Pain,ROM,Strength,Balance, Coordination,Sensation,Tone, Cognition,Bed Mobility, Transfers,Gait,Activity Tolerance Progress Towards Goals Progressing Toward Goals,Slow Progress due to Activity Tolerance Assessment Summary Pt required CG/Min for Sit<> stand from chair w/ FWW, safety cues for proper hand placement. Min A initially> CGA room distance 30 ft+ 20 ft , Min/Mod A for 2 PF step mgt w/ FWW. Recommending CGT tomorrow with daughter [id number] (coming via [employer]). Will continue to assess progress pm tx. Goals Bed Mobility Goal Standby Assistance Transfer Goal Standby Assistance,Front Wheeled Walker Gait Goal Standby Assistance,Front Wheel Walker Gait Distance 100 Other Goals up/down 1 step using fWW CGA Days to Meet Goals 10 Frequency of Treatment Frequency Of Treatment Twice a Day Treatment Plan Physical Therapy Treatment Plan Bed Mobility Training,Transfer Training,Gait Training, Therapeutic Exercise,Balance Retraining,Post Op Education, Discharge Planning,Hot or Cold Pack,Neuromuscular Re-ed, Coordination Retraining,Manual Therapy Other Recommendations and Next Treatment bed mob, transfers, gait Focus further distance w/ FWW, CGT with daughter including PF step mgt. Precautions Anterior Hip Precautions No Hip Extension,No Hip External Rotation Weight Bearing Status Weight Bearing Status Weight Bear as Tolerated Allowed Weight Bearing Amount (enter % RLE WBAT or #) (%) Recommendations To Nursing Amount of Assist Needed 1 Person Assist Discharge Recommendations PT Discharge Recommendations Home with 19/01 Assist Available,Outpatient PT Transportation Needs at Discharge Private Vehicle
--- NOTE | 2022-05-22 15:54 | PT.IPTN ---
Current Diagnoses Unilateral primary osteoarthritis, right hip (05/21/22) Surgery Performed Operation Date: 05/20/22 13:45 Actual Procedures p Total Hip Arthroplasty/Anterior Approach(Right) - Aleta Campos MD Physical Therapy Treatment Note M2 PT-IP Current Condition Start: 05/21/22 11:09 Freq: NEEDED Status: Active Protocol: Document 05/22/22 15:26 SP (Rec: 05/22/22 17:59 SP [id number]) Physical Therapy Current Condition Current Condition Evaluation Date 05/21/22 Treatment Diagnosis s/p R ROMULO anterior approach; difficulty in walking Onset Date 05/20/22 M3 PT-IP Subjective Start: 05/21/22 11:09 Freq: NEEDED Status: Active Protocol: Document 05/22/22 15:26 SP (Rec: 05/22/22 17:59 SP [id number]) Subjective Physical Therapy Visit Type Type Treatment Note Visit Start Time 15:26 Visit Stop Time 15:54 Total Visit Minutes 28 Notes Vitals: supine: BP 150/61, HR 81 Number of [facility] Visits 2 Physical Therapy Visit Comments Patient Comments Pt asleep when arrived, agreeable to working with therapy. Patient Goals Return home with daughter to assist her when needed, lives nearby. Is already set up for outpt therapy next week. Staff can assist coordinate ferry ride. Therapy Pain Assessment Pain When Pain Assessed During Mobility Pain Present Pain Present Denied Pain Location left hip Intensity 1 Scale Used Numeric (0 - 10) Description Tender,With Movement Pain Management Techniques Re-positioning,Timing of Activity with Medications M4 PT-IP Mobility and Gait Start: 05/21/22 11:09 Freq: NEEDED Status: Active Protocol: Document 05/22/22 15:26 SP (Rec: 05/22/22 17:59 SP [id number]) PT-Bed Mobility Assessment Supine to Sit Supine to Sit Minimal Assistance,1 Person Assistance,Bedrails Scooting Scooting to Edge of Bed Standby Assistance PT-Transfer Assessment Sit to and From Stand Sit to and from Stand Contact Guard Assistance,Use of Upper Extremities Equipment Transfer Assistive Device Gait Belt,Front Wheeled Walker Orthotic/Prosthetic Devices or Brace: No Transfers Transfer Destination Chair,Toilet Transfer Technique ambulate w/ FWW Transfer Ability Level of Assist Standby Assistance,Contact Guard Assistance,Use of Upper Extremities Comments Mobility Comments Completed supine>sit Min A for trunk righting w/use of bed rail on R (has bed post near HOB to use at home), scoot to EOB SBA heavy use of UEs. Sit> stand CGA w/ FWW. Progressed gait further into hallway w/ FWW approx 130 ft total SBA. When in room went to bathroom SBA, cued use grab bar for safety support during brief mgt 1 UE at time and descend, self pericare then ascend use grab bar into standing, good carryover stable. Pt gait to sink 12 ft, good FWW positioning, able stand unsupported stable, returned to EOB stand>sit>supine SBA. Instruction post op ex: AP, HS , glut and quad sets x5 reps, painfree. Pt had call light and all needs in reach bed alarmed. Will complete CGT at 1030-11 with daughter (coming from [facility]). Gait Assessment Gait Gait Assistance Required: Standby Assistance Distance (Feet) 130 Able to Maintain Weight Bearing Status Yes During Gait Assistive Devices Assistive Device Gait Belt,Front Wheeled Walker Gait Deviations General Gait Pattern Decreased Stride Length, Decreased Feet Clearance, Flexed Trunk,Step-to Gait Factors Limiting Gait Function Factors Limiting Gait Function Decreased Activity Tolerance, Decreased Strength,Limited Range of Motion,Poor Safety Awareness Comments Gait Comments Improved carryover hand placement and distance, maintaining hip precautions, step to patterning lead RLE. Stair Climbing Assessment Comments Stair Climbing Comments Will assess tomorrow am during CGT with daughter [id number]. PT-Balance Assessment Sitting Balance and Reactions Static Sitting Balance Ability Normal Dynamic Sitting Balance Ability Good Standing Balance and Reactions Static Standing Balance Ability Good Dynamic Standing Balance Ability Good M5 PT-IP Objective Assessments Start: 05/21/22 11:09 Freq: NEEDED Status: Active Protocol: Document 05/21/22 09:20 AB (Rec: 05/21/22 11:21 AB [id number]) Orientation Orientation/Cognition Level of Alertness Confusional State Orientation Name Language Function Ability Hard of Hearing Safety Awareness Decreased Safety Awareness Memory Description Short Term Impaired Strength Lower Extremity Strength Assessment Bilaterally Impaired Hip 3+/5 Knee 3+/5 Sensation Assessment Sensation Gross Sensation WNL Muscle Tone Muscle Tone WNL Yes M6 PT-IP Treatment Start: 05/21/22 11:09 Freq: NEEDED Status: Active Protocol: Document 05/22/22 15:26 SP (Rec: 05/22/22 17:59 SP [id number]) Physical Therapy Treatment Exercises Exercises Ankle Pumps,Gluteal Sets,Quad Sets,Heel Slides,Seated Knee Flexion/Extension Education Education Provided Precautions,Post-Op Packet, Safety M7 PT-IP Assessment and Plan Start: 05/21/22 11:09 Freq: NEEDED Status: Active Protocol: Document 05/22/22 15:26 SP (Rec: 05/22/22 17:59 SP [id number]) PT Summary Assessment and Plan Potential Rehabilitation Potential Fair Status of Condition at Evaluation Evolving Summary Impairments ROM,Strength,Balance,Cognition ,Bed Mobility,Transfers,Gait, Activity Tolerance Progress Towards Goals Progressing Toward Goals,Slow Progress due to Activity Tolerance Assessment Summary Pt required CG/Min for Sit<> stand from chair w/ FWW, safety cues for proper hand placement. Min A initially> CGA room distance 30 ft+ 20 ft , Min/Mod A for 2 PF step mgt w/ FWW. Recommending CGT tomorrow with daughter 1030-11 (coming via [employer]). Will continue to assess progress pm tx. Goals Bed Mobility Goal Standby Assistance Transfer Goal Standby Assistance,Front Wheeled Walker Gait Goal Standby Assistance,Front Wheel Walker Gait Distance 100 Other Goals up/down 1 step using fWW CGA Days to Meet Goals 10 Frequency of Treatment Frequency Of Treatment Twice a Day Treatment Plan Physical Therapy Treatment Plan Bed Mobility Training,Transfer Training,Gait Training, Therapeutic Exercise,Balance Retraining,Post Op Education, Discharge Planning,Hot or Cold Pack,Neuromuscular Re-ed, Coordination Retraining,Manual Therapy Other Recommendations and Next Treatment bed mob, transfers, gait Focus further distance w/ FWW, CGT with daughter including PF step mgt 05/23/22 at 1030-11. Precautions Anterior Hip Precautions No Hip Extension,No Hip External Rotation Weight Bearing Status Weight Bearing Status Weight Bear as Tolerated Allowed Weight Bearing Amount (enter % RLE WBAT or #) (%) Recommendations To Nursing Amount of Assist Needed Standby Assistance,1 Person Assist Discharge Recommendations PT Discharge Recommendations Home with 19/01 Assist Available,Outpatient PT Transportation Needs at Discharge Private Vehicle
[2022-05-22] MEDS: SENNOSIDES 8.6 MG TABLET 17.2 MG PO (21:17)
[2022-05-22] MEDS: AMITRIPTYLINE 25 MG TABLET PO (21:17)
[2022-05-22] MEDS: ATORVASTATIN 20 MG TABLET 40 MG PO (21:17)
[2022-05-23] MEDS: IBUPROFEN 400 MG TABLET PO ×2 (02:10→10:59)
[2022-05-23] MEDS: ACETAMINOPHEN 325 MG TABLET 650 MG PO ×2 (02:10→10:59)
[2022-05-23] MEDS: LEVOTHYROXINE 88 MCG TABLET PO (07:34)
[2022-05-23 08:21] VITALS: BP 147/73; PULSE 88; RESP 18; TEMP 36.9; O2SAT 95
[2022-05-23 08:54] VITALS: BP 145/79
[2022-05-23] MEDS: lisinopriL 10 MG TABLET PO (08:54)
[2022-05-23] MEDS: DOCUSATE 100 MG CAPSULE PO (08:54)
[2022-05-23] MEDS: ASPIRIN EC 81 MG TABLET PO (08:54)
[2022-05-23] MEDS: FISH OIL 1,000 MG CAPSULE 1000 MG PO (08:54)
[2022-05-23] MEDS: FENOFIBRATE, MICRONIZED 67 MG CAPSULE PO (08:54)
[2022-05-23] MEDS: CHOLECALCIFEROL (VITAMIN D3) 400 UNIT TABLET 800 UNIT PO (08:54)
--- NOTE | 2022-05-23 11:03 | PT.IPTN ---
Current Diagnoses Unilateral primary osteoarthritis, right hip (05/21/22) Surgery Performed Operation Date: 05/20/22 13:45 Actual Procedures p Total Hip Arthroplasty/Anterior Approach(Right) - Aleta Campos MD Physical Therapy Treatment Note M2 PT-IP Current Condition Start: 05/21/22 11:09 Freq: NEEDED Status: Active Protocol: Document 05/22/22 15:26 SP (Rec: 05/22/22 17:59 SP [id number]) Physical Therapy Current Condition Current Condition Evaluation Date 05/21/22 Treatment Diagnosis s/p R ROMULO anterior approach; difficulty in walking Onset Date 05/20/22 M3 PT-IP Subjective Start: 05/21/22 11:09 Freq: NEEDED Status: Active Protocol: Document 05/23/22 11:03 AW (Rec: 05/23/22 11:12 AW [id number]) Subjective Physical Therapy Visit Type Type Treatment Note Visit Start Time 10:48 Visit Stop Time 11:03 Total Visit Minutes 15 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 Therapy Pain Assessment Pain When Pain Assessed During Mobility Pain Present Pain Present Pain Reported Location left hip Intensity 2 Scale Used Numeric (0 - 10) M4 PT-IP Mobility and Gait Start: 05/21/22 11:09 Freq: NEEDED Status: Active Protocol: Document 05/23/22 11:03 AW (Rec: 05/23/22 11:12 AW [id number]) PT-Transfer Assessment Sit to and From Stand Sit to and from Stand Standby Assistance,Use of Upper Extremities Equipment Transfer Assistive Device Gait Belt,Front Wheeled Walker Orthotic/Prosthetic Devices or Brace: No Transfers Transfer Destination Chair Transfer Technique ambulate w/ FWW Transfer Ability Level of Assist Standby Assistance,Use of Upper Extremities Comments Mobility Comments Pt stood from the chair and used FWW to ambulate in the halls a total of 75 feet SBA. She completed stair training and returned to sitting on the chair. Gait Assessment Gait Gait Assistance Required: Standby Assistance Distance (Feet) 75 Able to Maintain Weight Bearing Status Yes During Gait Assistive Devices Assistive Device Gait Belt,Front Wheeled Walker Gait Deviations General Gait Pattern Decreased Stride Length, Decreased Feet Clearance, Flexed Trunk,Step-to Gait Factors Limiting Gait Function Factors Limiting Gait Function Decreased Activity Tolerance, Decreased Strength,Limited Range of Motion Comments Gait Comments Pt able to maintain anterior hip precautions safely with reminders to preferentially turn to the right. Stair Climbing Assessment Evaluation Level of Assist On Stairs Contact Guard Assistance,1 Person Assistance Devices Stair Climbing Assistive Devices Front Wheel Walker Technique/Endurance Stair Climbing Direction Ascend and Descend Stair Climbing Technique Step to Step Number of Steps Climbed 1 Stair Climbing Set # Repetitions (reps) 1 Comments Stair Climbing Comments Pt's granddaughter able to provide assist and sequencing cues safely. Pt complains of left knee pain on descent but states that is chronic. PT-Balance Assessment Sitting Balance and Reactions Static Sitting Balance Ability Normal Dynamic Sitting Balance Ability Good Standing Balance and Reactions Static Standing Balance Ability Good Dynamic Standing Balance Ability Good Device Used FWW M5 PT-IP Objective Assessments Start: 05/21/22 11:09 Freq: NEEDED Status: Active Protocol: Document 05/21/22 09:20 AB (Rec: 05/21/22 11:21 AB [id number]) Orientation Orientation/Cognition Level of Alertness Confusional State Orientation Name Language Function Ability Hard of Hearing Safety Awareness Decreased Safety Awareness Memory Description Short Term Impaired Strength Lower Extremity Strength Assessment Bilaterally Impaired Hip 3+/5 Knee 3+/5 Sensation Assessment Sensation Gross Sensation WNL Muscle Tone Muscle Tone WNL Yes M6 PT-IP Treatment Start: 05/21/22 11:09 Freq: NEEDED Status: Active Protocol: Document 05/23/22 11:03 AW (Rec: 05/23/22 11:12 AW [id number]) Physical Therapy Treatment Education Education Provided Precautions,Safety Other Treatments Other Treatment Performed Reviewed precautions with pt and granddaughter. Conducted caregiver training with granddaughter who will be primary CG initially. M7 PT-IP Assessment and Plan Start: 05/21/22 11:09 Freq: NEEDED Status: Active Protocol: Document 05/23/22 11:03 AW (Rec: 05/23/22 11:12 AW [id number]) PT Summary Assessment and Plan Potential Rehabilitation Potential Good Status of Condition at Evaluation Evolving Summary Impairments ROM,Strength,Balance,Cognition ,Bed Mobility,Transfers,Gait, Activity Tolerance Progress Towards Goals Progressing Toward Goals Assessment Summary Pt's daughter woke up feeling ill. Granddaughter will stay with pt initially. Conducted caregiver training with granddaughter who understood all precautions and was able to safely assist the pt. Pt is safe to discharge home with assist when medically stable. Outpatient PT is already scheduled. Goals Bed Mobility Goal Standby Assistance Transfer Goal Standby Assistance,Front Wheeled Walker Gait Goal Standby Assistance,Front Wheel Walker Gait Distance 100 Other Goals up/down 1 step using fWW CGA Days to Meet Goals 10 Frequency of Treatment Frequency Of Treatment Twice a Day Treatment Plan Physical Therapy Treatment Plan Bed Mobility Training,Transfer Training,Gait Training, Therapeutic Exercise,Balance Retraining,Post Op Education, Discharge Planning,Hot or Cold Pack,Neuromuscular Re-ed, Coordination Retraining,Manual Therapy Precautions Anterior Hip Precautions No Hip Extension,No Hip External Rotation Weight Bearing Status Weight Bearing Status Weight Bear as Tolerated Allowed Weight Bearing Amount (enter % RLE WBAT or #) (%) Recommendations To Nursing Amount of Assist Needed Standby Assistance,1 Person Assist Discharge Recommendations PT Discharge Recommendations Home with Assistance,Home with 24/ Assist Available, Outpatient PT Transportation Needs at Discharge Private Vehicle
--- NOTE | 2022-05-23 11:20 | PC.NURSE ---
Day shift: Paperwork signed and all questions answered. Pt has all personl belongings. scripts sent electronic to Pt's pharmacy. They have the [employer] boarding pass. Left unit via WC at approx 1120. Pt's Granddaughter is driving them home to [place]. Pain well controlled per AUG. CMS remains intact and Aquacel CDI.
== END 2022-05-23 11:26 | disposition home or self-care (01) ==
LOC: OR 15:35 → AC 15:35
PROVIDERS: Admitting Provider Orthopaedic Surgery; Family Provider Family Medicine; PCP Family Medicine; Referring Provider Orthopaedic Surgery; Visit Provider Orthopaedic Surgery
PROC: (CPT 27130; principal; 2022-05-20 13:45)
DX: M87.051 Idiopathic aseptic necrosis of right femur (principal); M16.11 Unilateral primary osteoarthritis, right hip; Z20.822 Contact with and (suspected) exposure to COVID-19; I10 Essential (primary) hypertension; E03.9 Hypothyroidism, unspecified; E78.00 Pure hypercholesterolemia, unspecified
CPT/HCPCS: 27130; 36415; 73502; 76000; 85014; 85018; 87635; 97116; 97162; 97530; C1776; C9803; G0378; A9270; C9290; J0171; J0690; J1170; J3010